=== PATIENT | male | born 1955 | race Caucasian/White ===

== ENCOUNTER 2023-07-03 09:48 | Emergency (ER) | payer MEDICARE, OTHER, SELFPAY ==
[2023-07-03] VITALS (7 sets, daily range): BP systolic 82–125; BP diastolic 57–97
[2023-07-03 10:32] LABS: Glucose - Point of Care > 600 mg/dl (70-99)
--- NOTE | 2023-07-03 10:44 | ED.GENMED ---
History of Present Illness
General
Chief Complaint: Urinary Symptoms
Source: patient
Exam Limitations: none
Time Seen by Provider: 07/03/23 10:11
Nursing documentation reviewed up to this point in time: agreed with
Travel History
Have you had any contact with someone who has COVID-19?: No
Do you have any symptoms of coronavirus? Fever > 100 degrees, chills, cough, shortness of breath, sore throat, loss of taste or smell, muscle aches, or headache?: No
History of Present Illness
History of Present Illness:
68-year-old male here with multiple concerns. He claims that he has not been taking his medications over the past 1-1/2 to 2 weeks including insulin, cholesterol medication. He does have a history of diabetes hypertension hyperlipidemia.
Additionally has a history of recurrent urinary tract infections. Also claims that left-sided groin discomfort denies changes in bowel movements denies nausea or vomiting. Does have urinary frequency and urgency.
Past History
Past History
ED Past Medical History: Asthma, HTN, Hypercholesterolemia, IDDM and Other (Kidney stones, Chronic back pain)
ED Past Surgical History: Other (Back surgery with microdiscectomy, kidney stone surgery x3, in removal of a right lymph node)
Social History
Tobacco: Smoker
Alcohol: None
Drug: None
Personal: Single
Living: alone
Employment: Disabled
Family History
Family History: Other (Noncontributory)
Review of Systems
Review of Systems
Allergies reviewed?: Yes
All Other Systems: ROS reviewed and negative except as documented in HPI and ROS
Phy Exam
Physical Exam
Physical Exam:
GENERAL: Alert , in no apparent distress
EYE: pupils equal and reactive
NECK: Supple, no significant adenopathy.
ENT: o/p clr, mmm.
CARDIAC: Regular rate and rhythm .
LUNGS: Clear breath sounds bilaterally, no acute respiratory distress, no wheezes/rales/rhonchi
ABDOMEN: Very minimal discomfort to the left groin area no testicular discomfort normal phallus soft benign abdomen otherwise no cvat
NEUROLOGICAL: Alert and oriented, no focal neuro deficits
SKIN: Warm and dry, skin intact.
MUSCULOSKELETAL: No edema, well perfused.
PSYCH: Normal and appropriate interaction.
Course
Orders/Labs/Results
Orders:
Orders
07/03/23 10:34
0.9% Sodium Chloride 1000 ml [Nss] 1,000 ml IV BOLUS
07/03/23 10:47
B-Hydroxybutyrate Urgent
Complete Blood Count/With Diff Urgent
Comprehensive Metabolic Panel Urgent
Lactic Acid Urgent
Venous Blood Gas Urgent
%Oxygen/Room Air: 99
07/03/23 10:50
Urinalysis Reflex To Culture Urgent
Date Specimen was Collected: 07/03/23
Time Specimen was Collected: 10:49
Urine Microscopic Reflex Cult Urgent
07/03/23 11:47
Insulin Human Regular [Novolin R] 10 units IV NOW STA
07/03/23 11:49
0.9% Sodium Chloride 1000 ml [Nss] 1,000 ml IV BOLUS
07/03/23 12:35
Bedside Glucose- Treatment ONCE
Vital Signs- Treatment ONCE
Frequency: Once
07/03/23 13:32
Cephalexin Monohydrate [Keflex] 500 mg PO NOW STA
Abnormal Lab Results
07/03/23 07/03/23 07/03/23
10:30 10:47 10:50
Hct 38.5 L %
(39.0-52.0)
MCV 78.9 L fL
(80.0-94.0)
MCHC 37.4 H g/dL
(33.0-37.0)
Absolute Monos (auto) 0.7 H 10^3/uL
(0.1-0.6)
Monocytes % 9.9 H %
(1.7-9.3)
VBG pO2 63 H mmHg
(30-50)
Sodium 125 L mmol/L
(135-145)
Chloride 92 L mmol/L
(98-107)
BUN 22 H mg/dl
(9-20)
Glucose 726 H* mg/dl
(70-99)
Alkaline Phosphatase 291 H U/L
(38-126)
Leukocyte Esterase Rfl Trace A
(Negative)
Urine Bacteria (Reflex) Few A
(Negative)
Urine Glucose 3+ A
(Negative)
B-Hydroxybutyrate 0.37 H mmol/L
(0.02-0.27)
POC Glucose > 600 H* mg/dl
(70-99)
07/03/23
12:42
Hct
MCV
MCHC
Absolute Monos (auto)
Monocytes %
VBG pO2
Sodium
Chloride
BUN
Glucose
Alkaline Phosphatase
Leukocyte Esterase Rfl
Urine Bacteria (Reflex)
Urine Glucose
B-Hydroxybutyrate
POC Glucose 323 H mg/dl
(70-99)
07/03/23 10:47
07/03/23 10:47
Vital Signs
Initial and Last Documented VS:
Initial Vital Signs
Temp Pulse Resp BP Pulse Ox
98.0 F 106 16 121/97 98
07/03/23 09:49 07/03/23 09:49 07/03/23 09:49 07/03/23 09:49 07/03/23 09:49
Last Documented Vital Signs
Temp Pulse Resp BP Pulse Ox
98.0 F 106 16 114/71 100
07/03/23 09:49 07/03/23 09:49 07/03/23 09:49 07/03/23 13:30 07/03/23 13:30
MDM/Problems Addressed
MDM/Problems Addressed:
68-year-old male presenting to the emergency department today with concerns of dysuria and slight left-sided groin discomfort. Also claims he is up and take his medications over the past few weeks and is an insulin-dependent diabetic. Upon arrival
patient was mildly tachycardic but heart rate in the 90s during my assessment on the monitor. Plan for labs for further assessment. Patient's initial fingerstick was read as 'high' otherwise corrected sodium
. Initial labs showing sugar level of 726. He was given fluids as well as dose of insulin. Close to normal range considering significantly elevated hyperglycemia otherwise no anion gap normal bicarb no signs of DKA. Did have bacteria as well as
white blood cells in his urine he claimed to have symptoms potentially consistent with UTI was treated with antibiotics. Patient was rechecked after a few hours in the ER after 2 L of fluid in the low 300s. Patient generally well-appearing in no
distress tolerating by mouth was written for his medication but otherwise will be able to follow-up close with a primary care doctor. Primary care was contacted prior to his discharge to ensure prompt follow-up.
*Critical Care Note
Total Time (30-74mins, 75-104mins- exclusive of procedures): Not Applicable
ED Attending Note
-
Portions of this chart may have been created with voice recognition software.� Occasional wrong word or��sound alike� substitutions may have occurred due to the inherent limitations of voice recognition software.
Discharge Plan
Departure
Patient Disposition: Home (Routine Discharge)
Date of Disposition: 07/03/23
Time of Disposition: 13:27
Patient with high blood pressure during this ER visit?: No
Condition: Good
Covid-19: Not Applicable
Discharge Problem:
Acute hyperglycemia, UTI (urinary tract infection)
Instructions: Urinary Tract Infection, Adult (DC), Diabetes Type 1, Adult (DC)
Prescriptions:
New
Humalog Mix 75-25(U-100)Insuln 100 unit/mL (75-25) suspension
19 unit SC BID Qty: 10 0RF
cephalexin 500 mg capsule
500 mg PO TID 5 Days Qty: 15 0RF
(DME) lancets Misc
See Rx Instructions .Route Qty: 100 0RF
Rx Instructions:
As directed
(DME) blood-glucose meter Kit
See Rx Instructions .Route Qty: 1 0RF
Rx Instructions:
As directed
No Action
diphenhydramine HCl [Benadryl] 25 mg Capsule
75 mg PO BID
insulin lispro protamin-lispro [Humalog Mix 75-25(U-100)Insuln] 100 unit/mL (75-25) Insulin Pen
19 unit SC BID
Patient Comments:
07/03/2023, pt. states that they ran out and have not used this med. for roughly 2-3 weeks.
ibuprofen-acetaminophen [Advil Dual Action] 125-250 mg Tablet
2 tab PO BID
Referrals:
[facility] [Provider Group] - Follow up in 2-3 days
NONE,* [Family Provider] -
Activity Restrictions/Additional Instructions:
You came to the emergency department today with concerns of chronic medical conditions that been left untreated. Here you had a very high sugar when you arrived. You are given fluids and insulin with significant improvement of your sugar level
into the 300s but will need ongoing very close management. Please make sure you monitor your sugar at home and take your insulin as prescribed. Please eat a low carbohydrate diet. He also may have a urinary tract infection. Please take Keflex 3
times daily for the next 5 days. He will need to follow-up closely with the medicine clinic in the next few days for reassessment. Return to the emergency department for any worsening, new or concerning symptoms.
Interventions
Interventions:
*Risk Screen - Suicide Last Done: 07/03/23 10:21
*General Assessment Last Done: 07/03/23 10:21
*Neglect/Abuse Screening Last Done: 07/03/23 10:21
ED- Fall Risk Assessment Last Done: 07/03/23 10:21
*ED COVID-19 Vaccine History Last Done: 07/03/23 09:49
*Nursing Disposition Last Done: 07/03/23 13:45
ED-Male Genitourinary Assessment Last Done: 07/03/23 10:21
Discharge Date and Time
Discharge Date/Time: 07/03/23 13:45
[2023-07-03] MEDS: NSS 1000 IV ×2 (10:47→12:10)
[2023-07-03 10:59] LABS: % Basophils 0.8 % (0-2); % Eosinophils 1.2 % (0-6); % Immature Granulocytes 0.5 % (0-0.5); % Lymphocytes 26.5 % (20.5-51.1); % Monocytes 9.9 % (1.7-9.3); % Neutrophils 61.1 % (42.2-75.2); Absolute Basophils 0.1 10^3/uL (0-0.2); Absolute Eosinophils 0.1 10^3/uL (0-0.7); Absolute Monocytes 0.7 10^3/uL (0.1-0.6); Absolute Neutrophils 4.6 10^3/uL (1.4-6.5); Hematocrit 38.5 % (39.0-52.0); Hemoglobin 14.4 g/dL (13.0-18.0); Mean Corp Hgb Conc. 37.4 g/dL (33.0-37.0); Mean Corpuscular Hgb 29.5 pg (27.0-31.0); Mean Corpuscular Volume 78.9 fL (80.0-94.0); Mean Platelet Volume 9.8 fL (7.4-10.4); Nucleated Red Blood Cells % 0 % (-); Platelet Count 220 10^3/uL (130-400); Red Blood Cell Count 4.88 10^6/uL (4.70-6.10); Red Cell Dist. Width 12.8 % (11.5-14.5); White Blood Cell Count 7.5 10^3/uL (4.8-10.8)
[2023-07-03 11:04] LABS: Venous Blood Gas B.E. 0.5 mmol/L (-4 to +4); Venous Blood Gas HCO3 25.4 mmol/L (22-27); Venous Blood Gas pCO2 41 mmHg (35-48); Venous Blood Gas pO2 63 mmHg (30-50)
[2023-07-03 11:09] LABS: Urine Albumin Negative (Neg - Trace); Urine Bilirubin Negative (Negative); Urine Character Clear (Clear); Urine Color Yellow; Urine Glucose 3+ (Negative); Urine Ketone Negative (Negative); Urine Leukocyte Trace (Negative); Urine Nitrite Negative (Negative); Urine Occult Blood Negative (Negative); Urine Urobilinogen Negative (Neg - 1+)
[2023-07-03 11:11] LABS: Lactic Acid 1.1 mmol/L (0.7-2.0)
[2023-07-03 11:20] LABS: ALT (SGPT) 43 U/L (0-50); AST (SGOT) 39 U/L (17-59); Albumin 4.1 g/dl (3.5-5.0); Alkaline Phosphatase 291 U/L (38-126); B-Hydroxybutyrate 0.37 mmol/L (0.02-0.27); Blood Urea Nitrogen 22 mg/dl (9-20); Calcium 9.5 mg/dl (8.4-10.2); Carbon Dioxide 25 mmol/L (22-30); Chloride 92 mmol/L (98-107); Estimated Creatinine Clearance 84 ml/min; Potassium 4.5 mmol/L (3.5-5.1); Sodium 125 mmol/L (135-145); Total Bilirubin 0.7 mg/dl (0.2-1.3); Total Protein 6.9 g/dl (6.3-8.2); eGFR > 60.00
[2023-07-03 11:20] LABS: Urine Bacteria Few (Negative); Urine Red Blood Cell 0-2 /HPF (0-2)
[2023-07-03 11:45] LABS: Glucose 726 mg/dl (70-99)
[2023-07-03] MEDS: NOVOLIN R 10 UNITS IV (12:07)
[2023-07-03 12:43] LABS: Glucose - Point of Care 323 mg/dl (70-99)
[2023-07-03] MEDS: KEFLEX 500 MG PO (13:38)
== END 2023-07-03 13:45 | disposition home or self-care (01) ==
LOC: EMR 09:48
PROVIDERS: Physician Assistant; EMERGENCY PHYSICIAN Student in an Organized Health Care Education/Training Program
DX: E11.65 Type 2 diabetes mellitus with hyperglycemia (principal); N39.0 Urinary tract infection, site not specified; J45.909 Unspecified asthma, uncomplicated; I10 Essential (primary) hypertension; E78.00 Pure hypercholesterolemia, unspecified; F17.200 Nicotine dependence, unspecified, uncomplicated; G89.29 Other chronic pain; Z87.440 Personal history of urinary (tract) infections; Z87.442 Personal history of urinary calculi; Z79.4 Long term (current) use of insulin
CPT/HCPCS: 99283; 96374; 96361; 80053; 81003; 81015; 82010; 82805; 82962; 83605; 85025

== ENCOUNTER 2023-11-07 13:59 | Emergency (ER) | payer MEDICARE, OTHER, SELFPAY ==
[2023-11-07 14:10] VITALS: BP 118/74
[2023-11-07 14:20] LABS: Glucose - Point of Care 576 mg/dl (70-99)
[2023-11-07 14:31] VITALS: BMI 20.6
[2023-11-07 14:32] VITALS: BP 105/76
[2023-11-07 14:55] LABS: % Basophils 0.8 % (0-2); % Eosinophils 1.4 % (0-6); % Immature Granulocytes 0.6 % (0-0.5); % Lymphocytes 30.2 % (20.5-51.1); % Monocytes 8.4 % (1.7-9.3); % Neutrophils 58.6 % (42.2-75.2); Absolute Basophils 0.1 10^3/uL (0-0.2); Absolute Eosinophils 0.1 10^3/uL (0-0.7); Absolute Lymphocytes 2.1 10^3/uL (1.2-3.4); Absolute Monocytes 0.6 10^3/uL (0.1-0.6); Absolute Neutrophils 4.1 10^3/uL (1.4-6.5); Hematocrit 38.7 % (39.0-52.0); Hemoglobin 13.8 g/dL (13.0-18.0); Mean Corp Hgb Conc. 35.7 g/dL (33.0-37.0); Mean Corpuscular Hgb 28.9 pg (27.0-31.0); Mean Platelet Volume 9.8 fL (7.4-10.4); Nucleated Red Blood Cells % 0 % (-); Platelet Count 190 10^3/uL (130-400); Red Blood Cell Count 4.78 10^6/uL (4.70-6.10); Red Cell Dist. Width 12.4 % (11.5-14.5); White Blood Cell Count 7.1 10^3/uL (4.8-10.8)
[2023-11-07 15:00] VITALS: BP 116/74
[2023-11-07] MEDS: NSS 1000 IV ×2 (15:06→15:31)
[2023-11-07 15:08] LABS: ALT (SGPT) 84 U/L (0-50); AST (SGOT) 68 U/L (17-59); Alkaline Phosphatase 333 U/L (38-126); Blood Urea Nitrogen 14 mg/dl (9-20); Calcium 9.5 mg/dl (8.4-10.2); Carbon Dioxide 25 mmol/L (22-30); Chloride 95 mmol/L (98-107); Estimated Creatinine Clearance 98 ml/min; Glucose 603 mg/dl (70-99); Potassium 4.3 mmol/L (3.5-5.1); Sodium 129 mmol/L (135-145); Total Bilirubin 0.5 mg/dl (0.2-1.3); Total Protein 6.8 g/dl (6.3-8.2); eGFR > 60.00
[2023-11-07 15:25] LABS: Venous Blood Gas B.E. 0.1 mmol/L (-4 to +4); Venous Blood Gas HCO3 24.7 mmol/L (22-27); Venous Blood Gas O2 Sat % 98.4 %; Venous Blood Gas pCO2 39 mmHg (35-48); Venous Blood Gas pH 7.41 (7.32-7.43); Venous Blood Gas pO2 97 mmHg (30-50)
--- NOTE | 2023-11-07 15:31 | ED.GENMED ---
History of Present Illness
General
Chief Complaint: Blood Sugar Problem
Source: patient
Exam Limitations: none
Time Seen by Provider: 11/07/23 14:36
Nursing documentation reviewed up to this point in time: agreed with
Travel History
Have you had any contact with someone who has COVID-19?: No
Do you have any symptoms of coronavirus? Fever > 100 degrees, chills, cough, shortness of breath, sore throat, loss of taste or smell, muscle aches, or headache?: No
History of Present Illness
History of Present Illness:
68 y/o M with h/o IDDM
poor compliance, lost to follow up despite beign given resources
here with hyperglycemia, right lower dental infection adn suspecion of a urine infection with lower abd pain/groin pain which he has had before with UTI and thinks he has another one
he says he is not homeless but he lives in a motel and tries to take care of himself
he has chronic foot pain from neuropathy but no wounds
no fever/chills/tesitcular pain/vomiting, diarrhea
he knew his bg was high so he rode his bike here, he has been without meds for a while
Past History
Past History
ED Past Medical History: Asthma, HTN, Hypercholesterolemia, IDDM and Other (Kidney stones, Chronic back pain)
ED Past Surgical History: Other (Back surgery with microdiscectomy, kidney stone surgery x3, in removal of a right lymph node)
Social History
Tobacco: Smoker
Alcohol: None
Drug: None
Personal: Single
Living: alone
Employment: Disabled
Family History
Family History: Other (Noncontributory)
Review of Systems
Review of Systems
Allergies reviewed?: Yes
All Other Systems: Not applicable
Phy Exam
Physical Exam
Physical Exam:
GENERAL: Alert , in no apparent distress, unkept
EYE: pupils equal and reactive
NECK: Supple
ENT: o/p clr, mmm.
mostly edentureless
right lower impacted molar fractured; tender, no periaplical swelling
CARDIAC: Regular rate and rhythm .
LUNGS: Clear breath sounds bilaterally, no acute respiratory distress, no wheezes/rales/rhonchi
ABDOMEN: Soft, without focal tenderness, no r/g, no cvat, normal bowel sounds
no inguinal tendnress or hernia
NEUROLOGICAL: Alert and oriented, no focal neuro deficits
SKIN: Warm and dry, skin intact. no wounds on feet, normal perfusion toes
MUSCULOSKELETAL: No edema, well perfused. neg katelynn's sign
PSYCH: Normal and appropriate interaction.
Course
Orders/Labs/Results
Orders:
Orders
11/07/23 14:33
B-Hydroxybutyrate Urgent
Complete Blood Count/With Diff Urgent
Comprehensive Metabolic Panel Urgent
11/07/23 14:58
Add On- LAB Urgent
Tests Added?: B-hydroxybutyrate
11/07/23 14:59
Venous Blood Gas Urgent
%Oxygen/Room Air: 21
0.9% Sodium Chloride 1000 ml [Nss] 1,000 ml IV BOLUS
11/07/23 15:26
0.9% Sodium Chloride 1000 ml [Nss] 1,000 ml IV BOLUS
11/07/23 16:36
Urinalysis Reflex To Culture Urgent
Date Specimen was Collected: 11/07/23
Time Specimen was Collected: 16:09
Urine Microscopic Reflex Cult Urgent
Urine Culture Urgent
KYLER Source: U
Specimen Description:
Date Specimen was Collected: 11/07/23
Time Specimen was Collected: 16:09
11/07/23 17:03
Cefdinir [Omnicef] 300 mg PO NOW STA
11/07/23 17:26
Insulin Regular, Human Pen [NovoLIN R Flexpen] 4 units SC NOW STA
Abnormal Lab Results
11/07/23 11/07/23 11/07/23
14:19 14:33 14:59
Hct 38.7 L %
(39.0-52.0)
Immature Gran % 0.6 H %
(0-0.5)
VBG pO2 97 H mmHg
(30-50)
Sodium 129 L mmol/L
(135-145)
Chloride 95 L mmol/L
(98-107)
Creatinine 0.5 L mg/dL
(0.7-1.3)
Glucose 603 H* mg/dl
(70-99)
AST 68 H U/L
(17-59)
ALT 84 H U/L
(0-50)
Alkaline Phosphatase 333 H U/L
(38-126)
Urine Ketones
Urine Nitrite (Reflex)
Leukocyte Esterase Rfl
Urine Bacteria (Reflex)
Urine Glucose
B-Hydroxybutyrate 0.29 H mmol/L
(0.02-0.27)
POC Glucose 576 H* mg/dl
(70-99)
11/07/23 11/07/23
16:36 17:25
Hct
Immature Gran %
VBG pO2
Sodium
Chloride
Creatinine
Glucose
AST
ALT
Alkaline Phosphatase
Urine Ketones Trace A
(Negative)
Urine Nitrite (Reflex) Positive A
(Negative)
Leukocyte Esterase Rfl Trace A
(Negative)
Urine Bacteria (Reflex) Many A
(Negative)
Urine Glucose 3+ A
(Negative)
B-Hydroxybutyrate
POC Glucose 367 H mg/dl
(70-99)
11/07/23 14:33
11/07/23 14:33
Vital Signs
Initial and Last Documented VS:
Initial Vital Signs
Temp Pulse Resp BP Pulse Ox
98.3 F 83 20 118/74 97
11/07/23 14:10 11/07/23 14:10 11/07/23 14:10 11/07/23 14:10 11/07/23 14:10
Last Documented Vital Signs
Temp Pulse Resp BP Pulse Ox
98.3 F 73 17 117/71 99
11/07/23 14:10 11/07/23 16:45 11/07/23 16:45 11/07/23 16:00 11/07/23 16:45
MDM/Problems Addressed
Differential Diagnosis Includes:
hyperglycemia, HHNK ,noncompliance, UTI
MDM/Problems Addressed:
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
has had previous ed visits for hypergylecmia and reqeusting refills of his meds
he also feels like he has a UTI and has a right lower tooth infection with decay and is mostly edentureless
no facial swellign
no periapical abscess
no abdominla ptednerness
previous ed visits reviewd
pt usually responds well to IVF
his initial labs show BG 600, hyponatremia pseudo, corrected for glc is normal
his AG is 9
his ph is normal
and bhb is minimally elevated
ua positive
after 2 L ivf, bg 360
treated with insulin prior to discharge
message to family p[[facility]
d/c home
*Critical Care Note
Total Time (30-74mins, 75-104mins- exclusive of procedures): Not Applicable
ED Attending Note
-
Portions of this chart may have been created with voice recognition software.� Occasional wrong word or��sound alike� substitutions may have occurred due to the inherent limitations of voice recognition software.
Discharge Plan
Departure
Patient Disposition: Home (Routine Discharge)
Date of Disposition: 11/07/23
Time of Disposition: 17:31
Patient with high blood pressure during this ER visit?: No
Condition: Fair
Covid-19: Not Applicable
Discharge Problem:
UTI (urinary tract infection), Type 2 diabetes mellitus with hyperglycemia
Instructions: Urinary Tract Infection, Adult ED, High Blood Sugar, Adult ED
Prescriptions:
New
cefdinir 300 mg capsule
300 mg PO BID Qty: 14 0RF
Humalog Mix 75-25(U-100)Insuln 100 unit/mL (75-25) suspension
19 unit SC BID Qty: 10 1RF
No Action
diphenhydramine HCl [Benadryl] 25 mg Capsule
75 mg PO HS
insulin lispro protamin-lispro [Humalog Mix 75-25(U-100)Insuln] 100 unit/mL (75-25) Insulin Pen
22 unit SC BID
Referrals:
NONE,* [Family Provider] -
Activity Restrictions/Additional Instructions:
I refilled your insulin. You also have an infection in your urine. Take cefdinir twice a day for 7 days. You need to see a dentist for her tooth. Probably needs to be pulled.
You need to try to make an appointment with the family medicine clinic. I sent a message to them to try hopefully get in touch with you. Return for any concerns.
Interventions
Interventions:
*Risk Screen - Suicide Last Done: 11/07/23 14:10
*General Assessment Last Done: 11/07/23 14:10
*Neglect/Abuse Screening Last Done: 11/07/23 14:10
ED- Fall Risk Assessment Last Done: 11/07/23 14:31
*ED COVID-19 Vaccine History Last Done: 11/07/23 14:31
ED- Neurological Assessment Last Done: 11/07/23 14:31
Discharge Date and Time
Print Language: PANAMANIAN
[2023-11-07 15:34] LABS: B-Hydroxybutyrate 0.29 mmol/L (0.02-0.27)
[2023-11-07 16:00] VITALS: BP 117/71
[2023-11-07 16:53] LABS: Urine Albumin Negative (Neg - Trace); Urine Bilirubin Negative (Negative); Urine Character Clear (Clear); Urine Color Yellow; Urine Glucose 3+ (Negative); Urine Ketone Trace (Negative); Urine Leukocyte Trace (Negative); Urine Nitrite Positive (Negative); Urine Occult Blood Negative (Negative); Urine Urobilinogen Negative (Neg - 1+)
[2023-11-07 17:06] LABS: Urine Red Blood Cell 0-2 /HPF (0-2)
[2023-11-07 17:07] LABS: Urine Bacteria Many (Negative)
[2023-11-07 17:27] LABS: Glucose - Point of Care 367 mg/dl (70-99)
[2023-11-07] MEDS: OMNICEF 300 MG PO (17:45)
[2023-11-07] MEDS: NOVOLIN R 0.0400000000000000008 UNITS SC (17:52)
[2023-11-07 18:01] VITALS: BP 126/69
[2023-11-07 18:16] VITALS: BP 126/69
--- NOTE | 2023-11-09 15:34 | ED.PDOC.TRB ---
ED Provider Triage
-
Patient seen by provider in Triage?: Seen in Triage
68-year-old male past medical history of insulin-dependent diabetes, admits to noncompliance with his medication for many months, presents back to the emergency department after being seen here 2 days ago stating that we prescribed him the wrong
type of the. Patient states that he had been without his insulin for at least 5 months prior to this notes that he does not his blood sugars regularly or was compliant with his medication previously. He has no other concerns and was hoping to get
a different type of insulin. On record review it appears patient had a blood sugar of greater than 600 on his last visit 2 days ago. Was treated with insulin here as well as 2 L of fluids and had a downtrending glucose. Bkaux-[id number] glucose
shows glucose is high. Labs ordered as I suspect patient's glucose will again be greater than 500. Diabetic consult requested. Patient to be brought back into the ER.
== END 2023-11-07 18:16 | disposition home or self-care (01) ==
LOC: EMR 13:59
PROVIDERS: Physician Assistant; Student in an Organized Health Care Education/Training Program; EMERGENCY PHYSICIAN Emergency Medicine
DX: N39.0 Urinary tract infection, site not specified (principal); E11.65 Type 2 diabetes mellitus with hyperglycemia; K04.7 Periapical abscess without sinus; E87.1 Hypo-osmolality and hyponatremia; E78.00 Pure hypercholesterolemia, unspecified; J45.909 Unspecified asthma, uncomplicated; I10 Essential (primary) hypertension; G89.29 Other chronic pain; F17.200 Nicotine dependence, unspecified, uncomplicated; Z87.440 Personal history of urinary (tract) infections; Z87.442 Personal history of urinary calculi
CPT/HCPCS: 99283; 96372; 96360; 96361; 80053; 81003; 81015; 82010; 82805; 82962; 85025; 87086; 87088; 87186

== ENCOUNTER 2023-11-09 15:20 | Emergency (ER) | payer MEDICARE, OTHER, SELFPAY ==
[2023-11-09 15:34] VITALS: BP 114/81
[2023-11-09 15:34] LABS: Glucose - Point of Care 523 mg/dl (70-99)
--- NOTE | 2023-11-09 15:49 | ED.GENMED ---
History of Present Illness
General
Chief Complaint: Blood Sugar Problem
Travel History
Have you had any contact with someone who has COVID-19?: No
Do you have any symptoms of coronavirus? Fever > 100 degrees, chills, cough, shortness of breath, sore throat, loss of taste or smell, muscle aches, or headache?: No
Past History
Past History
ED Past Medical History: Asthma, HTN, Hypercholesterolemia, IDDM and Other (Kidney stones, Chronic back pain)
ED Past Surgical History: Other (Back surgery with microdiscectomy, kidney stone surgery x3, in removal of a right lymph node)
Social History
Tobacco: Smoker
Alcohol: None
Drug: None
Personal: Single
Living: alone
Employment: Disabled
Family History
Family History: Other (Noncontributory)
Course
Orders/Labs/Results
Orders:
Orders
11/09/23 15:43
B-Hydroxybutyrate Urgent
CMP [Comprehensive Metabolic Panel] Urgent
Complete Blood Count/With Diff Urgent
Hemoglobin A1c [Glycohemoglobin (HgbA1c)] Urgent
Urinalysis Reflex To Culture Urgent
Date Specimen was Collected: 11/09/23
Time Specimen was Collected: 15:43
11/09/23 15:44
Venous Blood Gas Urgent
%Oxygen/Room Air: RA
0.9% Sodium Chloride 1000 ml [Nss] 1,000 ml IV BOLUS
Abnormal Lab Results
11/09/23
15:32
POC Glucose 523 H* mg/dl
(70-99)
Vital Signs
Initial and Last Documented VS:
Initial Vital Signs
Temp Pulse Resp BP Pulse Ox
98.7 F 101 18 114/81 97
11/09/23 15:34 11/09/23 15:34 11/09/23 15:34 11/09/23 15:34 11/09/23 15:34
Last Documented Vital Signs
Temp Pulse Resp BP Pulse Ox
98.7 F 101 18 114/81 97
11/09/23 15:34 11/09/23 15:34 11/09/23 15:34 11/09/23 15:34 11/09/23 15:34
ED Attending Note
-
Portions of this chart may have been created with voice recognition software.� Occasional wrong word or��sound alike� substitutions may have occurred due to the inherent limitations of voice recognition software.
Discharge Plan
Departure
Prescriptions:
No Action
diphenhydramine HCl [Benadryl] 25 mg Capsule
75 mg PO HS
insulin lispro protamin-lispro [Humalog Mix 75-25(U-100)Insuln] 100 unit/mL (75-25) Insulin Pen
22 unit SC BID
cefdinir 300 mg capsule
300 mg PO BID Qty: 14 0RF
Humalog Mix 75-25(U-100)Insuln 100 unit/mL (75-25) suspension
19 unit SC BID Qty: 10 1RF
Interventions
Interventions:
*Risk Screen - Suicide Last Done: 11/09/23 15:34
*Neglect/Abuse Screening Last Done: 11/09/23 15:34
*ED COVID-19 Vaccine History Last Done: 11/09/23 15:34
Discharge Date and Time
Print Language: SLOVAK
--- NOTE | 2023-11-09 15:57 | PN.DE ---
Diabetes Education
- -
11/09/23: Diabetes Education Consult
This is a 68 year old male well known to me from his last hospital stay. Pt presented to the ED with concerns of poorly controlled blood sugars and acute on chronic vision issues. His blood sugar on admission was in the 500s. He was given a liter of
fluid as well as 10 units of insulin.
ED staff consulted diabetes team for insulin instructions and discussion about poor compliance with diabetes management at home.
Of note, pt is already on insulin at home. He takes NPH 20 units BID and states that he is comfortable with self administration of insulin.
Pt was counseled about glucose control and emphasized need to continue taking his insulin as prescribed. Pt states that he was here in the ED yesterday and was given the wrong prescription and that it's the reason why his blood sugars are high.
Discussed with ED PA and plan is to involve case management to assist with pt's OP f/u appointments with his PCP.
[2023-11-09] MEDS: NSS 1000 IV (16:05)
[2023-11-09 16:07] LABS: Venous Blood Gas B.E. -0.9 mmol/L (-4 to +4); Venous Blood Gas HCO3 24.9 mmol/L (22-27); Venous Blood Gas O2 Sat % 95.9 %; Venous Blood Gas pCO2 44 mmHg (35-48); Venous Blood Gas pH 7.36 (7.32-7.43); Venous Blood Gas pO2 80 mmHg (30-50)
[2023-11-09 16:23] LABS: % Eosinophils 1.4 % (0-6); % Immature Granulocytes 0.6 % (0-0.5); % Lymphocytes 28.5 % (20.5-51.1); % Neutrophils 60.5 % (42.2-75.2); Absolute Basophils 0.1 10^3/uL (0-0.2); Absolute Eosinophils 0.1 10^3/uL (0-0.7); Absolute Immature Granulocytes 0.1 10^3/uL (0-0.05); Absolute Lymphocytes 2.5 10^3/uL (1.2-3.4); Absolute Monocytes 0.7 10^3/uL (0.1-0.6); Absolute Neutrophils 5.3 10^3/uL (1.4-6.5); Hematocrit 41.4 % (39.0-52.0); Hemoglobin 15.2 g/dL (13.0-18.0); Mean Corp Hgb Conc. 36.7 g/dL (33.0-37.0); Mean Corpuscular Hgb 29.3 pg (27.0-31.0); Mean Corpuscular Volume 79.8 fL (80.0-94.0); Mean Platelet Volume 9.8 fL (7.4-10.4); Nucleated Red Blood Cells % 0 % (-); Platelet Count 202 10^3/uL (130-400); Red Blood Cell Count 5.19 10^6/uL (4.70-6.10); Red Cell Dist. Width 12.8 % (11.5-14.5); White Blood Cell Count 8.7 10^3/uL (4.8-10.8)
[2023-11-09 16:30] LABS: ALT (SGPT) 90 U/L (0-50); AST (SGOT) 88 U/L (17-59); Albumin 4.5 g/dl (3.5-5.0); Alkaline Phosphatase 286 U/L (38-126); Blood Urea Nitrogen 14 mg/dl (9-20); Calcium 10.1 mg/dl (8.4-10.2); Carbon Dioxide 24 mmol/L (22-30); Chloride 95 mmol/L (98-107); Glucose 555 mg/dl (70-99); Potassium 5.4 mmol/L (3.5-5.1); Sodium 128 mmol/L (135-145); Total Bilirubin 0.9 mg/dl (0.2-1.3); Total Protein 7.6 g/dl (6.3-8.2); eGFR > 60.00
[2023-11-09 16:30] LABS: Urine Albumin Negative (Neg - Trace); Urine Bilirubin Negative (Negative); Urine Character Clear (Clear); Urine Color Yellow; Urine Glucose 3+ (Negative); Urine Ketone 1+ (Negative); Urine Leukocyte Negative (Negative); Urine Nitrite Negative (Negative); Urine Occult Blood Negative (Negative); Urine Urobilinogen Negative (Neg - 1+)
--- NOTE | 2023-11-09 16:59 | ED.GENMED ---
History of Present Illness
General
Chief Complaint: Blood Sugar Problem
Source: patient
Exam Limitations: none
Time Seen by Provider: 11/09/23 16:23
Nursing documentation reviewed up to this point in time: agreed with
Travel History
Have you had any contact with someone who has COVID-19?: No
Do you have any symptoms of coronavirus? Fever > 100 degrees, chills, cough, shortness of breath, sore throat, loss of taste or smell, muscle aches, or headache?: No
History of Present Illness
History of Present Illness:
68-year-old male past medical history of diabetes but very poor compliance was here few days ago was written for insulin but was told that he can only receive the vials at the time but one of the flex pen so did not use it. He is coming back in to
receive the flex pens here. Denies significant symptoms other than frequent urination claims he had some trouble with his vision for many months as well. Does not have a primary care doctor.
Past History
Past History
ED Past Medical History: Asthma, HTN, Hypercholesterolemia, IDDM and Other (Kidney stones, Chronic back pain)
ED Past Surgical History: Other (Back surgery with microdiscectomy, kidney stone surgery x3, in removal of a right lymph node)
Social History
Tobacco: Smoker
Alcohol: None
Drug: None
Personal: Single
Living: alone
Employment: Disabled
Family History
Family History: Other (Noncontributory)
Review of Systems
Review of Systems
Allergies reviewed?: Yes
All Other Systems: ROS reviewed and negative except as documented in HPI and ROS
Phy Exam
Physical Exam
Physical Exam:
GENERAL: Alert , in no apparent distress
EYE: pupils equal and reactive
NECK: Supple, no significant adenopathy.
ENT: o/p clr, mmm.
CARDIAC: Regular rate and rhythm .
LUNGS: Clear breath sounds bilaterally, no acute respiratory distress, no wheezes/rales/rhonchi
ABDOMEN: Soft, without focal tenderness, no r/g, no cvat
NEUROLOGICAL: Alert and oriented, no focal neuro deficits
SKIN: Warm and dry, skin intact.
MUSCULOSKELETAL: No edema, well perfused.
PSYCH: Normal and appropriate interaction.
Course
Orders/Labs/Results
Orders:
Orders
11/09/23 15:44
0.9% Sodium Chloride 1000 ml [Nss] 1,000 ml IV BOLUS
11/09/23 15:50
Case Management Consult ONCE
Case Management Consult: VN/Home Care
11/09/23 15:55
B-Hydroxybutyrate Urgent
CMP [Comprehensive Metabolic Panel] Urgent
Complete Blood Count/With Diff Urgent
Hemoglobin A1c [Glycohemoglobin (HgbA1c)] Urgent
Venous Blood Gas Urgent
%Oxygen/Room Air: RA
11/09/23 15:59
Urinalysis Reflex To Culture Urgent
Date Specimen was Collected: 11/09/23
Time Specimen was Collected: 15:43
11/09/23 16:44
Insulin Human Regular [Novolin R] 10 units SC NOW STA
11/09/23 17:47
BMP [Basic Metabolic Panel] Urgent
Abnormal Lab Results
11/09/23 11/09/23 11/09/23
15:32 15:55 15:59
MCV 79.8 L fL
(80.0-94.0)
Abs Immat Gran (auto) 0.1 H 10^3/uL
(0-0.05)
Absolute Monos (auto) 0.7 H 10^3/uL
(0.1-0.6)
Immature Gran % 0.6 H %
(0-0.5)
VBG pO2 80 H mmHg
(30-50)
Sodium 128 L mmol/L
(135-145)
Potassium 5.4 H D mmol/L
(3.5-5.1)
Chloride 95 L mmol/L
(98-107)
Carbon Dioxide
Creatinine 0.5 L mg/dL
(0.7-1.3)
Glucose 555 H* mg/dl
(70-99)
AST 88 H U/L
(17-59)
ALT 90 H U/L
(0-50)
Alkaline Phosphatase 286 H U/L
(38-126)
Urine Ketones 1+ A
(Negative)
Urine Glucose 3+ A
(Negative)
B-Hydroxybutyrate 0.36 H mmol/L
(0.02-0.27)
POC Glucose 523 H* mg/dl
(70-99)
11/09/23 11/09/23
17:35 17:47
MCV
Abs Immat Gran (auto)
Absolute Monos (auto)
Immature Gran %
VBG pO2
Sodium 131 L mmol/L
(135-145)
Potassium
Chloride
Carbon Dioxide 20 L mmol/L
(22-30)
Creatinine 0.4 L mg/dL
(0.7-1.3)
Glucose 433 H mg/dl
(70-99)
AST
ALT
Alkaline Phosphatase
Urine Ketones
Urine Glucose
B-Hydroxybutyrate
POC Glucose 403 H mg/dl
(70-99)
11/09/23 15:55
11/09/23 17:47
Vital Signs
Initial and Last Documented VS:
Initial Vital Signs
Temp Pulse Resp BP Pulse Ox
98.7 F 101 18 114/81 97
11/09/23 15:34 11/09/23 15:34 11/09/23 15:34 11/09/23 15:34 11/09/23 15:34
Last Documented Vital Signs
Temp Pulse Resp BP Pulse Ox
98.7 F 101 18 114/81 97
11/09/23 15:34 11/09/23 15:34 11/09/23 15:34 11/09/23 15:34 11/09/23 15:34
MDM/Problems Addressed
MDM/Problems Addressed:
68-year-old male presenting to the emergency department today with concerns of poorly controlled diabetes. Denies specific acute concerns at this time. Does have some chronic concerns including vision blurring over many years. Sugar here
initially in the 500s. He was given a liter of fluid as well as 10 units of insulin. He spoke with case management that will help set up a primary care doctor and give him a phone to use which should help with his compliance moving forward. Sugar
level significantly improving prior to discharge into the 300s stable for discharge return precautions given.
*Critical Care Note
Total Time (30-74mins, 75-104mins- exclusive of procedures): Not Applicable
ED Attending Note
-
Portions of this chart may have been created with voice recognition software.� Occasional wrong word or��sound alike� substitutions may have occurred due to the inherent limitations of voice recognition software.
Discharge Plan
Departure
Patient Disposition: Home (Routine Discharge)
Date of Disposition: 11/09/23
Time of Disposition: 18:33
Patient with high blood pressure during this ER visit?: No
Condition: Good
Covid-19: Not Applicable
Discharge Problem:
Hyperglycemia
Instructions: Diabetes Type 1, Adult (DC)
Prescriptions:
New
Novolin 70-30 FlexPen U-100 100 unit/mL (70-30) insulin pen
20 unit SC BID Qty: 15 0RF
No Action
diphenhydramine HCl [Benadryl] 25 mg Capsule
75 mg PO HS
insulin lispro protamin-lispro [Humalog Mix 75-25(U-100)Insuln] 100 unit/mL (75-25) Insulin Pen
22 unit SC BID
cefdinir 300 mg capsule
300 mg PO BID Qty: 14 0RF
Humalog Mix 75-25(U-100)Insuln 100 unit/mL (75-25) suspension
19 unit SC BID Qty: 10 1RF
Referrals:
UNKNOWN - PT DOES,NOT KNOW [Family Provider] -
Activity Restrictions/Additional Instructions:
You came to the emergency department today with concerns of elevated sugar level. Please use insulin and follow-up closely with a primary care doctor. Return to the emergency department for any worsening, new or concerning symptoms.
Interventions
Interventions:
*Risk Screen - Suicide Last Done: 11/09/23 15:34
*Neglect/Abuse Screening Last Done: 11/09/23 15:34
*ED COVID-19 Vaccine History Last Done: 11/09/23 15:34
ED- Neurological Assessment Last Done: 11/09/23 16:07
Discharge Date and Time
Print Language: UKRAINIAN
[2023-11-09] MEDS: NOVOLIN R 10 UNITS SC (17:00)
--- NOTE | 2023-11-09 17:13 | CM ---
CM met with patient. Patient complaining that he did not receive the correct insulin. He stated that he uses pens and he got a script for vials. CM attempted to discuss a PCP. Patient continued to complain that the doctor's stopped his pain
medications and now he is unable to function. He is agree to taking a list of PCP's. Patient stated that he is currently living at the [facility] and uses his bike for transportation. Patient stated that he need money to buy minutes for his
phone. CM will provide $20 [employer] [place] for phone minutes.
Patient is agreeable to [facility] on aging referral. CM sent via email to [facility].
CM updated ED PA and bedside RN.
[2023-11-09 17:21] LABS: B-Hydroxybutyrate 0.36 mmol/L (0.02-0.27)
[2023-11-09 17:39] LABS: Glucose - Point of Care 403 mg/dl (70-99)
[2023-11-09 18:21] LABS: Blood Urea Nitrogen 15 mg/dl (9-20); Calcium 9.4 mg/dl (8.4-10.2); Carbon Dioxide 20 mmol/L (22-30); Chloride 102 mmol/L (98-107); Glucose 433 mg/dl (70-99); Potassium 3.8 mmol/L (3.5-5.1); Sodium 131 mmol/L (135-145); eGFR > 60.00
[2023-11-09 18:32] LABS: Glucose - Point of Care 318 mg/dl (70-99)
[2023-11-09 19:06] VITALS: BP 115/80
[2023-11-10 09:47] LABS: Glycohemoglobin (HgbA1c) 17.1 % (4.0-5.6)
== END 2023-11-09 19:09 | disposition home or self-care (01) ==
LOC: EMR 15:20
PROVIDERS: Physician Assistant; Physician Assistant Medical; EMERGENCY PHYSICIAN Emergency Medicine
DX: E11.65 Type 2 diabetes mellitus with hyperglycemia (principal); R35.0 Frequency of micturition; E78.00 Pure hypercholesterolemia, unspecified; F17.200 Nicotine dependence, unspecified, uncomplicated; G89.29 Other chronic pain; I10 Essential (primary) hypertension; J45.909 Unspecified asthma, uncomplicated; Z79.4 Long term (current) use of insulin; Z87.442 Personal history of urinary calculi
CPT/HCPCS: 99283; 96372; 96360; 80048; 80053; 81003; 82010; 82805; 82962; 83036; 85025

== ENCOUNTER 2023-12-22 12:51 | Emergency (ER) | payer MEDICARE, OTHER, SELFPAY ==
[2023-12-22 12:52] VITALS: BP 123/87
[2023-12-22 12:55] LABS: Glucose - Point of Care 359 mg/dl (70-99)
--- NOTE | 2023-12-22 13:42 | CM ---
Addendum entered by Gladys Duong RN 12/22/23 14:20:
CM met with patient. Patient is complaining that he is unable to follow up with a PCP because no doctor will prescribe him pain medications and he feels he needs them to 'get through the day'. Of note, patient road his bike to the emergency room
from his hotel room at the [facility]. Patient is able to fruit picker his medications from the local [place].
Patient provided patient with written information for [facility] on aging. Patient stated that he is too difficult to reach via phone. CM did confirm that patient's phone is charged and has minutes available.
Due to patient's inability to follow up on medical care and multiple presentations to the emergency room, CM will call [facility] due to patient's self neglect.
Original Note:
CM reviewed medical records. Patient is well known to CM. CM left message for [facility] through [facility] to see if they can assist.
BRITTNI Jenkins
[facility] Nurse
[phone]
[2023-12-22 14:00] VITALS: BP 97/78
--- NOTE | 2023-12-22 14:39 | CM ---
Addendum entered by Rohini Yoo 12/22/23 16:32:
Alice, nurse from [facility], returned 's phone call. She informed CM that she will be more than glad to help/provide services to patient. CM provided patient's demographics to Alice.
Original Note:
CM called [facility] to report that patient has been utilizing the ER as his PCP. He has difficulty with following up with services that are started or given/suggested to him in the ED. He informed CM that he is 'hard to get ahold of' because 'I go to bed
early. I go to bed around 8PM and don't get up until 12PM some days. It's very hard to get ahold of me. Even my family can't get in touch with me. They'll call several times a day and I'm in and out sleep. I sleep because no one will give me pain
meds. I'm in alot of pain and just sleep.'
[facility] collected required information and report was completed.
CM also called Alice Rizzo's ([facility] nurse) mobile number. No answer. Also called [employer] equalizer operator, who stated she did not have any numbers for Alice or any other [facility] employees.
[2023-12-22 14:41] LABS: % Basophils 1.1 % (0-2); % Eosinophils 2.1 % (0-6); % Immature Granulocytes 1.4 % (0-0.5); % Lymphocytes 30.8 % (20.5-51.1); % Monocytes 8.4 % (1.7-9.3); % Neutrophils 56.2 % (42.2-75.2); Absolute Basophils 0.1 10^3/uL (0-0.2); Absolute Eosinophils 0.2 10^3/uL (0-0.7); Absolute Immature Granulocytes 0.1 10^3/uL (0-0.05); Absolute Lymphocytes 2.5 10^3/uL (1.2-3.4); Absolute Monocytes 0.7 10^3/uL (0.1-0.6); Absolute Neutrophils 4.6 10^3/uL (1.4-6.5); Hematocrit 44.3 % (39.0-52.0); Hemoglobin 15.8 g/dL (13.0-18.0); Mean Corp Hgb Conc. 35.7 g/dL (33.0-37.0); Mean Corpuscular Hgb 30.3 pg (27.0-31.0); Mean Corpuscular Volume 84.9 fL (80.0-94.0); Mean Platelet Volume 9.7 fL (7.4-10.4); Nucleated Red Blood Cells % 0 % (-); Platelet Count 209 10^3/uL (130-400); Red Blood Cell Count 5.22 10^6/uL (4.70-6.10); White Blood Cell Count 8.1 10^3/uL (4.8-10.8)
[2023-12-22] MEDS: NSS 1000 IV (14:43)
[2023-12-22 15:13] LABS: Blood Urea Nitrogen 16 mg/dl (9-20); Calcium 9.6 mg/dl (8.4-10.2); Carbon Dioxide 26 mmol/L (22-30); Chloride 99 mmol/L (98-107); Glucose 341 mg/dl (70-99); Potassium 4.5 mmol/L (3.5-5.1); Sodium 134 mmol/L (135-145); eGFR > 60.00
--- NOTE | 2023-12-22 15:15 | ED.GENMED ---
History of Present Illness
General
Chief Complaint: Prescription Refill
Source: patient
Exam Limitations: none
Time Seen by Provider: 12/22/23 13:43
Nursing documentation reviewed up to this point in time: agreed with
History of Present Illness
History of Present Illness:
68-year-old male with past medical history of hypertension hyperlipidemia, eye DDM, alcohol abuse and substance abuse presenting to the emergency department today with concerns of lack of insulin at home. He claims had some ongoing achiness to his
legs this been going on chronically also complains that he has some blurred vision that has been going on for years. Has not followed up with an eye doctor or foot doctor. Was here for similar a month ago has not been able to follow-up claims that
he has been too busy.
Past History
Past History
ED Past Medical History: Asthma, HTN, Hypercholesterolemia, IDDM and Other (Kidney stones, Chronic back pain)
ED Past Surgical History: Other (Back surgery with microdiscectomy, kidney stone surgery x3, in removal of a right lymph node)
Social History
Tobacco: Smoker
Alcohol: None
Drug: None
Personal: Single
Living: alone
Employment: Disabled
Family History
Family History: Other (Noncontributory)
Review of Systems
Review of Systems
Allergies reviewed?: Yes
All Other Systems: ROS reviewed and negative except as documented in HPI and ROS
Phy Exam
Physical Exam
Physical Exam:
GENERAL: Alert , in no apparent distress
EYE: pupils equal and reactive
NECK: Supple, no significant adenopathy.
ENT: o/p clr, mmm.
CARDIAC: Regular rate and rhythm .
LUNGS: Clear breath sounds bilaterally, no acute respiratory distress, no wheezes/rales/rhonchi
ABDOMEN: Soft, without focal tenderness, no r/g, no cvat
NEUROLOGICAL: Alert and oriented, no focal neuro deficits
SKIN: Warm and dry, skin intact.
MUSCULOSKELETAL: No edema, well perfused.
PSYCH: Normal and appropriate interaction.
Course
Orders/Labs/Results
Orders:
Orders
12/22/23 13:44
0.9% Sodium Chloride 1000 ml [Nss] 1,000 ml IV BOLUS
12/22/23 14:24
BMP [Basic Metabolic Panel] Urgent
CBC/With Diff [Complete Blood Count/With Diff] Urgent
UA Reflex to Culture [Urinalysis Reflex To Culture] Urgent
Date Specimen was Collected: 12/22/23
Time Specimen was Collected: 14:23
12/22/23 15:14
Insulin Aspart [NOVOLOG vial] 10 units SC NOW STA
Abnormal Lab Results
12/22/23 12/22/23
12:54 14:24
Abs Immat Gran (auto) 0.1 H 10^3/uL
(0-0.05)
Absolute Monos (auto) 0.7 H 10^3/uL
(0.1-0.6)
Immature Gran % 1.4 H %
(0-0.5)
Sodium 134 L mmol/L
(135-145)
Creatinine 0.5 L mg/dL
(0.7-1.3)
Glucose 341 H mg/dl
(70-99)
Urine Glucose 3+ A
(Negative)
POC Glucose 359 H mg/dl
(70-99)
12/22/23 14:24
12/22/23 14:24
Vital Signs
Initial and Last Documented VS:
Initial Vital Signs
Temp Pulse Resp BP Pulse Ox
97.8 F 98 18 123/87 97
12/22/23 12:52 12/22/23 12:52 12/22/23 12:52 12/22/23 12:52 12/22/23 12:52
Last Documented Vital Signs
Temp Pulse Resp BP Pulse Ox
97.8 F 84 20 104/83 100
12/22/23 12:52 12/22/23 16:52 12/22/23 16:52 12/22/23 16:52 12/22/23 16:52
MDM/Problems Addressed
MDM/Problems Addressed:
68-year-old male presenting to the emergency department today for an insulin prescription. Sugar here in the 300s no evidence of DKA no anion gap normal bicarb. He was given fluids as well as a dose of insulin here prior to discharge. Otherwise
advised for close outpatient follow-up social work therapist was consulted to help facilitate outpatient follow-up.
*Critical Care Note
Total Time (30-74mins, 75-104mins- exclusive of procedures): Not Applicable
ED Attending Note
-
Portions of this chart may have been created with voice recognition software.� Occasional wrong word or��sound alike� substitutions may have occurred due to the inherent limitations of voice recognition software.
Discharge Plan
Departure
Patient Disposition: Home (Routine Discharge)
Date of Disposition: 12/22/23
Time of Disposition: 16:44
Patient with high blood pressure during this ER visit?: No
Condition: Good
Covid-19: Not Applicable
Discharge Problem:
Diabetes, Neuropathy
Instructions: Diabetic retinopathy, Diabetes and diet
Prescriptions:
New
Humulin 70/30 U-100 KwikPen 100 unit/mL (70-30) insulin pen
20 unit SC BID Qty: 15 0RF
No Action
diphenhydramine HCl [Benadryl] 25 mg Capsule
75 mg PO HS
insulin lispro protamin-lispro [Humalog Mix 75-25(U-100)Insuln] 100 unit/mL (75-25) Insulin Pen
22 unit SC BID
cefdinir 300 mg capsule
300 mg PO BID Qty: 14 0RF
Humalog Mix 75-25(U-100)Insuln 100 unit/mL (75-25) suspension
19 unit SC BID Qty: 10 1RF
Novolin 70-30 FlexPen U-100 100 unit/mL (70-30) insulin pen
20 unit SC BID Qty: 15 0RF
Referrals:
NONE,* [Family Provider] -
Activity Restrictions/Additional Instructions:
You came to the emergency department today with concerns of lack of insulin. Please follow closely as an outpatient return to the emergency department for any worsening, new or concerning symptoms.
Interventions
Interventions:
*Risk Screen - Suicide Last Done: 12/22/23 12:52
*General Assessment Last Done: 12/22/23 12:52
*Neglect/Abuse Screening Last Done: 12/22/23 12:52
ED- Fall Risk Assessment Last Done: 12/22/23 14:30
*ED COVID-19 Vaccine History Last Done: 12/22/23 12:52
*Nursing Disposition Last Done: 12/22/23 16:54
Discharge Date and Time
Discharge Date/Time: 12/22/23 17:13
Print Language: DANISH
[2023-12-22 15:24] LABS: Urine Albumin Negative (Neg - Trace); Urine Bilirubin Negative (Negative); Urine Character Clear (Clear); Urine Color Yellow; Urine Glucose 3+ (Negative); Urine Ketone Negative (Negative); Urine Leukocyte Negative (Negative); Urine Nitrite Negative (Negative); Urine Occult Blood Negative (Negative); Urine Urobilinogen Negative (Neg - 1+); Urine pH 6.5 (5.0-9.0)
[2023-12-22] MEDS: NOVOLOG vial 10 UNITS SC (15:24)
[2023-12-22 16:52] VITALS: BP 104/83
== END 2023-12-22 17:13 | disposition home or self-care (01) ==
LOC: EMR 12:51
PROVIDERS: Physician Assistant; EMERGENCY PHYSICIAN Emergency Medicine
DX: E11.40 Type 2 diabetes mellitus with diabetic neuropathy, unspecified (principal); I10 Essential (primary) hypertension; E78.00 Pure hypercholesterolemia, unspecified; F17.200 Nicotine dependence, unspecified, uncomplicated; Z76.0 Encounter for issue of repeat prescription
CPT/HCPCS: 99284; 96360; 96372; 80048; 81003; 82962; 85025

== ENCOUNTER 2024-01-18 21:39 | Inpatient (IN) | payer MEDICARE, OTHER, SELFPAY ==
[2024-01-18 17:52] VITALS: BP 118/94
[2024-01-18 18:20] VITALS: BP 95/81
[2024-01-18 18:49] VITALS: BMI 24.0
[2024-01-18 18:57] LABS: % Basophils 0.4 % (0-2); % Eosinophils 1.9 % (0-6); % Immature Granulocytes 0.4 % (0-0.5); % Lymphocytes 14.9 % (20.5-51.1); % Monocytes 10.8 % (1.7-9.3); % Neutrophils 71.6 % (42.2-75.2); Absolute Eosinophils 0.2 10^3/uL (0-0.7); Absolute Lymphocytes 1.4 10^3/uL (1.2-3.4); Absolute Neutrophils 6.6 10^3/uL (1.4-6.5); Hematocrit 40.6 % (39.0-52.0); Hemoglobin 14.5 g/dL (13.0-18.0); Mean Corp Hgb Conc. 35.7 g/dL (33.0-37.0); Mean Corpuscular Hgb 29.7 pg (27.0-31.0); Mean Platelet Volume 9.2 fL (7.4-10.4); Nucleated Red Blood Cells % 0 % (-); Platelet Count 234 10^3/uL (130-400); Red Blood Cell Count 4.89 10^6/uL (4.70-6.10); Red Cell Dist. Width 12.9 % (11.5-14.5); White Blood Cell Count 9.3 10^3/uL (4.8-10.8)
--- NOTE | 2024-01-18 19:09 | ED.GENMED ---
History of Present Illness
<Marce Vargas PA-C - Last Filed: 01/18/24 23:55>
General
Chief Complaint: Exposure-Chemical
Source: patient
Exam Limitations: none
Time Seen by Provider: 01/18/24 18:42
Nursing documentation reviewed up to this point in time: agreed with
History of Present Illness
History of Present Illness:
Patient is a 68-year-old male with history hypertension, hyperlipidemia, insulin-dependent diabetes presenting to the emergency department concerns of worsening shortness of breath over the past 5 days. Patient states that last Monday he started
with exertional shortness of breath stating that he 'cannot catch his breath '. He also endorses worsening shortness of breath when he has been lying flat and a dry cough when lying flat. Patient denies any chest pain or chest discomfort.
Possible subjective fevers at home. Denies any abdominal pain, pain in his lower extremities, sore throat, nasal congestion.
Patient denies any personal history of cardiovascular disease or heart failure. Unknown family history as patient was adopted.
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 He is concerned that his symptoms may be
related to chemical exposure in the motel room.
Past History
<Marce Vargas PA-C - Last Filed: 01/18/24 23:55>
Past History
ED Past Medical History: Asthma, HTN, Hypercholesterolemia, IDDM and Other (Kidney stones, Chronic back pain)
ED Past Surgical History: Other (Back surgery with microdiscectomy, kidney stone surgery x3, in removal of a right lymph node)
Social History
Tobacco: Smoker
Alcohol: None
Drug: None
Personal: Single
Living: alone
Employment: Disabled
Family History
Family History: Other (Noncontributory)
Review of Systems
<Marce Vargas PA-C - Last Filed: 01/18/24 23:55>
Review of Systems
Allergies reviewed?: Yes
All Other Systems: ROS reviewed and negative except as documented in HPI and ROS
Phy Exam
<Marce Vargas PA-C - Last Filed: 01/18/24 23:55>
Physical Exam
Physical Exam:
Vitals: Mildly tachypneic, hypoxic with oxygen saturation of 86 on room air upon arrival.
General: Patient in no apparent distress. Nontoxic-appearing
Skin: Warm and dry, no rashes or lesions
Head: Normocephalic, atraumatic
Eyes: Sclera nonicteric. EOMs intact. No nystagmus.
Throat: Protecting airway
Neck: Normal ROM, no cervical spine tenderness, no meningismus. Trachea midline
Cardiac: Regular rate and rhythm, no murmurs.
Pulm: Hypoxic with O2 of 86 on room air�improved to 92 on 3 L. Mildly tachypneic. Diminished breath sounds at bilateral bases with fine crackles. No wheezing.
Abdomen: Abdomen soft. No abdominal tenderness.
Extremities: No evidence of cyanosis or edema
Neuro: Grossly intact.
Psychiatric: Normal affect.
Course
<Marce Vargas PA-C - Last Filed: 01/18/24 23:55>
Orders/Labs/Results
Orders:
Orders
01/18/24 Dinner
1800 calorie (15 carb) Diabetic
At Your Request: Full Participation
01/18/24 18:33
Electrocardiogram (*1) Urgent
Reason for Study: Shortness of Breath
01/18/24 18:51
Complete Blood Count/With Diff Urgent
Comprehensive Metabolic Panel Urgent
NT-proBNP Urgent
Comment: ADD ON
Troponin I Urgent
01/18/24 18:54
Chest [CR Chest - 2 Views ] Urgent
Comment:
Reason For Exam: sob
01/18/24 18:55
COVID-19 Antigen Urgent
Source: Nasal Swab
01/18/24 18:58
Add On- LAB Urgent
Tests Added?: pro-BNP
01/18/24 20:11
Aspirin Chewable [Low Strength Aspirin] 324 mg PO NOW STA
Azithromycin 500 mg/250 ml [Zithromax Infusion] 500 mg in 250 ml IV NOW
CefTRIAXone [Rocephin] 1,000 mg IV NOW STA
01/18/24 20:48
Dextrose 50%-Water [Dextrose 50% Syringe] 12.5 grams IV [id number] PRN
Dextrose 50%-Water [Dextrose 50% Syringe] 25 grams IV NOW STA
Glucagon [GlucaGen] 1 mg IM PRN PRN
01/18/24 20:49
Bedside Glucose Monitoring As Directed
Frequency: AC&HS
Additional Instructions:: Change to q6h if pt on TPN, tube feeding or not eating
01/18/24 21:17
Blood Culture Urgent
KYL[facility] Source: Blood/Venous
Specimen Description:
01/18/24 21:21
Legionella Urinary Antigen Routine
KYLER Source: Urine
Specimen Description:
Strep pneumoniae Antigen Routine
KYLER Source: Urine
Specimen Description:
Furosemide [Lasix] 20 mg IV NOW STA
01/18/24 21:25
Admit/Transfer Patient As Directed
Co-Sign Provider:
Level of Care: Inpatient admission
Assign to:: Telemetry
Physician / Group: nirali zheng
Diagnosis: pna vs chf, nonmitrop elevation
Reason for Telemetry: Arrhythmia
Date to Stop Telemetry: 01/21/24
Time to Stop Telemetry: 11:00
Reason for Hospitalization: pna vs chf, nonmitrop elevation
Expected length of stay greater than two midnights?: Yes
ELOS- Estimated Length of Stay in days: 4
I certify the patient meets the requirements for IP care: Yes
Code Status As Directed
Resuscitation Status: Full Code
01/18/24 21:28
PRN Pain Medication Management As Directed
May give lesser potent ordered pain med per pt: Yes
preference::
Protocol:: Medication orders for pain may be administered in a
manner that supports deferring to patient preference
when the pt is:
- Requesting an ordered lesser potent pain medication.
Least to most potent pain medications are defined
as: acetaminophen < NSAID < tramadol < opioids
(morphine, oxycodone, hydromorphone).
- Requesting a lesser dose of the same medication IF
ORDERED.
- Requesting a less intrusive route of administration
if both routes are prescribed by the provider (PO <
IV).
01/18/24 21:50
Electrocardiogram (*1) Urgent
Reason for Study: Shortness of Breath
01/18/24 22:00
Flush (0.9% Sodium Chloride) [Flush (Nss)] See Dose Instructions IV PER PROTOCOL
01/18/24 22:12
Troponin I Urgent
01/18/24 22:48
Acetaminophen [Tylenol] 650 mg PO Q4HPRN PRN
Bisacodyl [Dulcolax] 10 mg RECTAL [id number] PRN
Diphenhydramine [Benadryl] 75 mg PO HS
Docusate W/Senna [Senokot-S] 1 tablet PO BIDPRN PRN
Polyethylene Glycol Powder [Miralax] 17 grams PO DAILYPRN PRN
01/18/24 22:48
Sputum Culture [Respiratory Culture/Gram Stain] Routine
KYLER Source: Sputum
Specimen Description:
Activity As Directed
Activity Level: As Tolerated
Intake/ Output As Directed
Frequency: Per unit guidelines
Vital Signs As Directed
Frequency: Per unit guidelines
Weight As Directed
Frequency: Daily
Incentive Spirometry [Rx Incentive Spirometry] [RESP] Routine
Frequency: q1h while awake
O2 Therapy [RESP] Routine
Nasal Cannula Liter Flow: 2 LPM
Titrate/Wean O2 to maintain O2 sat greater than (%): 92
Pulse Ox/spot Check [RESP] Routine
Quantity: 1
Ot Eval And Treat Routine
Pt Eval And Treat Routine
Activity Level: As Tolerated
DX Deep Vein Thrombosis Video Routine
01/19/24 03:30
Troponin I Q6H
01/19/24 06:00
EKG [Electrocardiogram (*1)] IN AM
Reason for Study: Chest Pain
Echo 2D MMode Color/Doppler IN AM
Reason for Study: sob
Cardiovascular Evaluation IN AM
Complete Blood Count/With Diff IN AM
Comprehensive Metabolic Panel IN AM
Glycohemoglobin (HgbA1c) IN AM
01/19/24 08:00
Aspirin Low Dose EC [Aspir Low (Enteric Coated)] 81 mg PO DAILY
01/19/24 09:30
Troponin I Q6H
01/19/24 15:30
Troponin I Q6H
01/19/24 18:00
Enoxaparin Sodium [Lovenox] 40 mg SC QPM
01/19/24 20:00
CefTRIAXone [Rocephin] 1,000 mg IV Q24H
01/19/24 22:00
Azithromycin 500 mg/250 ml [Zithromax Infusion] 500 mg in 250 ml IV Q24H
01/20/24 06:00
Complete Blood Count/With Diff IN AM
Comprehensive Metabolic Panel IN AM
01/21/24 06:00
Complete Blood Count/With Diff IN AM
Comprehensive Metabolic Panel IN AM
01/21/24 11:00
DC Protocol for Telemetry ONCE
01/22/24 06:00
Complete Blood Count/With Diff IN AM
Comprehensive Metabolic Panel IN AM
Abnormal Lab Results
01/18/24
18:51
Absolute Neuts (auto) 6.6 H 10^3/uL
(1.4-6.5)
Absolute Monos (auto) 1.0 H 10^3/uL
(0.1-0.6)
Lymphocytes % 14.9 L %
(20.5-51.1)
Monocytes % 10.8 H %
(1.7-9.3)
Sodium 134 L mmol/L
(135-145)
BUN 21 H mg/dl
(9-20)
Creatinine 0.6 L mg/dL
(0.7-1.3)
Glucose 66 L mg/dl
(70-99)
AST 89 H U/L
(17-59)
ALT 77 H U/L
(0-50)
Troponin I 0.153 H* ng/ml
01/18/24 18:51
01/18/24 18:51
Vital Signs
Initial and Last Documented VS:
Initial Vital Signs
Temp Pulse Resp BP Pulse Ox
97.9 F 101 16 118/94 95
01/18/24 17:52 01/18/24 17:52 01/18/24 17:52 01/18/24 17:52 01/18/24 17:52
Last Documented Vital Signs
Temp Pulse Resp BP Pulse Ox
97.9 F 107 23 100/71 93
01/18/24 17:52 01/18/24 22:35 01/18/24 18:30 01/18/24 22:35 01/18/24 22:52
<Rolly Dhaliwal MD - Last Filed: 01/18/24 20:30>
Orders/Labs/Results
Orders:
Orders
01/18/24 Dinner
1800 calorie (15 carb) Diabetic
At Your Request: Full Participation
01/18/24 18:33
Electrocardiogram (*1) Urgent
Reason for Study: Shortness of Breath
01/18/24 18:51
Complete Blood Count/With Diff Urgent
Comprehensive Metabolic Panel Urgent
NT-proBNP Urgent
Comment: ADD ON
Troponin I Urgent
01/18/24 18:54
Chest [CR Chest - 2 Views ] Urgent
Comment:
Reason For Exam: sob
01/18/24 18:55
COVID-19 Antigen Urgent
Source: Nasal Swab
01/18/24 18:58
Add On- LAB Urgent
Tests Added?: pro-BNP
01/18/24 20:11
Aspirin Chewable [Low Strength Aspirin] 324 mg PO NOW STA
Azithromycin 500 mg/250 ml [Zithromax Infusion] 500 mg in 250 ml IV NOW
CefTRIAXone [Rocephin] 1,000 mg IV NOW STA
01/18/24 20:48
Dextrose 50%-Water [Dextrose 50% Syringe] 12.5 grams IV [id number] PRN
Dextrose 50%-Water [Dextrose 50% Syringe] 25 grams IV NOW STA
Glucagon [GlucaGen] 1 mg IM PRN PRN
01/18/24 20:49
Bedside Glucose Monitoring As Directed
Frequency: AC&HS
Additional Instructions:: Change to q6h if pt on TPN, tube feeding or not eating
01/18/24 21:17
Blood Culture Urgent
KYL[facility] Source: Blood/Venous
Specimen Description:
01/18/24 21:21
Legionella Urinary Antigen Routine
KY[facility] Source: Urine
Specimen Description:
Strep pneumoniae Antigen Routine
KYL[facility] Source: Urine
Specimen Description:
Furosemide [Lasix] 20 mg IV NOW STA
01/18/24 21:25
Admit/Transfer Patient As Directed
Co-Sign Provider:
Level of Care: Inpatient admission
Assign to:: Telemetry
Physician / Group: nirali zheng
Diagnosis: pna vs chf, nonmitrop elevation
Reason for Telemetry: Arrhythmia
Date to Stop Telemetry: 01/21/24
Time to Stop Telemetry: 11:00
Reason for Hospitalization: pna vs chf, nonmitrop elevation
Expected length of stay greater than two midnights?: Yes
ELOS- Estimated Length of Stay in days: 4
I certify the patient meets the requirements for IP care: Yes
Code Status As Directed
Resuscitation Status: Full Code
01/18/24 21:28
PRN Pain Medication Management As Directed
May give lesser potent ordered pain med per pt: Yes
preference::
Protocol:: Medication orders for pain may be administered in a
manner that supports deferring to patient preference
when the pt is:
- Requesting an ordered lesser potent pain medication.
Least to most potent pain medications are defined
as: acetaminophen < NSAID < tramadol < opioids
(morphine, oxycodone, hydromorphone).
- Requesting a lesser dose of the same medication IF
ORDERED.
- Requesting a less intrusive route of administration
if both routes are prescribed by the provider (PO <
IV).
01/18/24 21:50
Electrocardiogram (*1) Urgent
Reason for Study: Shortness of Breath
01/18/24 22:00
Flush (0.9% Sodium Chloride) [Flush (Nss)] See Dose Instructions IV PER PROTOCOL
01/18/24 22:12
Troponin I Urgent
01/18/24 22:48
Acetaminophen [Tylenol] 650 mg PO Q4HPRN PRN
Bisacodyl [Dulcolax] 10 mg RECTAL [id number] PRN
Diphenhydramine [Benadryl] 75 mg PO HS
Docusate W/Senna [Senokot-S] 1 tablet PO BIDPRN PRN
Polyethylene Glycol Powder [Miralax] 17 grams PO DAILYPRN PRN
01/18/24 22:48
Sputum Culture [Respiratory Culture/Gram Stain] Routine
KYL[facility] Source: Sputum
Specimen Description:
Activity As Directed
Activity Level: As Tolerated
Intake/ Output As Directed
Frequency: Per unit guidelines
Vital Signs As Directed
Frequency: Per unit guidelines
Weight As Directed
Frequency: Daily
Incentive Spirometry [Rx Incentive Spirometry] [RESP] Routine
Frequency: q1h while awake
O2 Therapy [RESP] Routine
Nasal Cannula Liter Flow: 2 LPM
Titrate/Wean O2 to maintain O2 sat greater than (%): 92
Pulse Ox/spot Check [RESP] Routine
Quantity: 1
Ot Eval And Treat Routine
Pt Eval And Treat Routine
Activity Level: As Tolerated
DX Deep Vein Thrombosis Video Routine
01/19/24 03:30
Troponin I Q6H
01/19/24 06:00
EKG [Electrocardiogram (*1)] IN AM
Reason for Study: Chest Pain
Echo 2D MMode Color/Doppler IN AM
Reason for Study: sob
Cardiovascular Evaluation IN AM
Complete Blood Count/With Diff IN AM
Comprehensive Metabolic Panel IN AM
Glycohemoglobin (HgbA1c) IN AM
01/19/24 08:00
Aspirin Low Dose EC [Aspir Low (Enteric Coated)] 81 mg PO DAILY
01/19/24 09:30
Troponin I Q6H
01/19/24 15:30
Troponin I Q6H
01/19/24 18:00
Enoxaparin Sodium [Lovenox] 40 mg SC QPM
01/19/24 20:00
CefTRIAXone [Rocephin] 1,000 mg IV Q24H
01/19/24 22:00
Azithromycin 500 mg/250 ml [Zithromax Infusion] 500 mg in 250 ml IV Q24H
01/20/24 06:00
Complete Blood Count/With Diff IN AM
Comprehensive Metabolic Panel IN AM
01/21/24 06:00
Complete Blood Count/With Diff IN AM
Comprehensive Metabolic Panel IN AM
01/21/24 11:00
DC Protocol for Telemetry ONCE
01/22/24 06:00
Complete Blood Count/With Diff IN AM
Comprehensive Metabolic Panel IN AM
Abnormal Lab Results
01/18/24
18:51
Absolute Neuts (auto) 6.6 H 10^3/uL
(1.4-6.5)
Absolute Monos (auto) 1.0 H 10^3/uL
(0.1-0.6)
Lymphocytes % 14.9 L %
(20.5-51.1)
Monocytes % 10.8 H %
(1.7-9.3)
Sodium 134 L mmol/L
(135-145)
BUN 21 H mg/dl
(9-20)
Creatinine 0.6 L mg/dL
(0.7-1.3)
Glucose 66 L mg/dl
(70-99)
AST 89 H U/L
(17-59)
ALT 77 H U/L
(0-50)
Troponin I 0.153 H* ng/ml
01/18/24 18:51
01/18/24 18:51
Vital Signs
Initial and Last Documented VS:
Initial Vital Signs
Temp Pulse Resp BP Pulse Ox
97.9 F 101 16 118/94 95
01/18/24 17:52 01/18/24 17:52 01/18/24 17:52 01/18/24 17:52 01/18/24 17:52
Last Documented Vital Signs
Temp Pulse Resp BP Pulse Ox
97.9 F 107 23 100/71 93
01/18/24 17:52 01/18/24 22:35 01/18/24 18:30 01/18/24 22:35 01/18/24 22:52
<Marce Vargas PA-C - Last Filed: 01/18/24 23:55>
MDM/Problems Addressed
Differential Diagnosis Includes:
Not limited to: Bronchitis, pneumonitis, pneumonia, CHF, ACS
MDM/Problems Addressed:
68-year-old male presenting with 5 days of exertional shortness of breath and dry cough worse when lying flat. No exertional chest pain. Subjective fevers at home. Patient is hypoxic to 86% on room air on arrival-placed on 2 L nasal cannula.
COVID-negative. Chest x-ray reviewed which shows a bibasilar pneumonia right> left. Labs reviewed. No leukocytosis. There is a mild nonspecific transaminitis. Troponin was elevated to 0.153�which I suspect to be related to demand ischemia from
hypoxia. EKG does show some T wave inversions in anterior leads�although patient is without any chest pain. Do not suspect ACS. Will give aspirin and trend Troponin. BMP was sent which is elevated to 3330. Patient has no known history of heart
failure and without any clinical evidence of fluid overload on exam. Blood pressures have been soft -will hold off on Lasix at this time. Patient's history does sound somewhat consistent with heart failure�patient may benefit from echocardiogram
for further evaluation. Do not suspect symptoms are related to patient's possible chemical exposure given they have been gradually progressing for the past 5 days
Given patient's hypoxia requiring oxygen and findings consistent with a bibasilar pneumonia�will start patient on IV antibiotics and admit to hospitalist for further management. Patient accepted to hospitalist service.
Chronic conditions affecting care:
Insulin-dependent diabetes
Acute Exacerbation and/or Progression of Chronic Illness:
N/A
<Marce Vargas PA-C - Last Filed: 01/18/24 23:55>
*Radiology
Radiology exam reviewed: preliminary read by ED provider
*Pulse Oximetry
Patient hypoxic: yes (86% on room air-placed on 3 L nasal cannula with oxygen saturation of 92)
*EKG
Interpreted by ED Provider?: Yes
EKG Intrepretation Date: 01/18/24
Interpretation: abnormal
Comparison EKG: changes noted
Heart Rate: 97
Rate: normal
Rhythm: sinus
Bennett: normal axis
Interval: normal interval
QRS Pattern: low voltage
Ischemia: T-wave inversion (Anterior leads)
*Ward Clerk Interpretation
Rate: normal
Interpretation: normal
Heart Rate: 100
Rhythm: sinus
*Critical Care Note
Total Time (30-74mins, 75-104mins- exclusive of procedures): Not Applicable
<Marce Vargas PA-C - Last Filed: 01/18/24 23:55>
Patient Management
Discussion with other providers: Hospitalist
Escalation/DeEscalation of care consider admission/obs:
Admit for IV antibiotics, further evaluation
ED Attending Note
<Marce Vargas PA-C - Last Filed: 01/18/24 23:55>
-
Portions of this chart may have been created with voice recognition software.� Occasional wrong word or��sound alike� substitutions may have occurred due to the inherent limitations of voice recognition software.
<Rolly Dhaliwal MD - Last Filed: 01/18/24 20:30>
ED Attending Note
Patient seen and examined by attending physician: Yes
ED Attending Note:
I have seen and evaluated the patient with a [id number] encounter. I have spoken to the advance practicer provider and involved in the medical history, the physical exam, medical decision making.
Evaluation and management service: agree unless noted differently below.
Results interpretation: agree unless noted differently below.
Focused HPI: 68-year-old male with medical history as documented presents to the emergency room for shortness of breath, cough. Patient reports onset of symptoms about a week ago�he thinks it may have been triggered by inhaling fumes from
fumigation treatment. He says he has had a hacking nonproductive cough and increasing shortness of breath particular with exertion. He reports chest tightness. He believes he has had a low-grade fever. Denies other complaints.
Physical exam: Awake alert not in distress. Mild tachypnea, mild tachycardia, normotensive, afebrile, pulse ox 85% on room air requiring 3 L nasal cannula. He has rhonchorous breath sounds right greater than left lung base. Occasional coughing.
No cardiac rubs gallops or murmurs appreciated. No edema in lower extremities, no JVD.
Medical Decision Makin-year-old male presents with cough and shortness of breath for the past week or so. Vitals and exam as above. Sent off labs including a CBC which was unremarkable, CMP which showed marginal transaminitis. Chest x-ray
appears to show bilateral pneumonia right greater than left. Troponin was marginally elevated suspect demand in the setting of his hypoxia; he did have some T wave inversions EKG but is not having chest pain, low suspicion that this is an acute
coronary syndrome. Will treat with aspirin and trend troponin. Will cover with antibiotics for community-acquired pneumonia. Admit for continued treatment.
Discharge Plan
Departure
Patient Disposition: Admit
Date of Disposition: 01/18/24
Time of Disposition: 20:23
Presentation/result/management discussed w/ accepting MD/DO: Hospitalist
Covid-19: Negative COVID-19
Discharge Problem:
Community acquired pneumonia of both lower lobes, Hypoxia, Elevated troponin
Interventions
Interventions:
*Risk Screen - Suicide Last Done: 01/18/24 19:06
*General Assessment Last Done: 01/18/24 19:06
*Neglect/Abuse Screening Last Done: 01/18/24 19:06
ED- Fall Risk Assessment Last Done: 01/18/24 22:52
*ED COVID-19 Vaccine History Last Done: 01/18/24 19:06
*Nursing Disposition Last Done: 01/18/24 22:52
ED- Pulmonary Assessment Last Done: 01/18/24 19:30
ED-Skin Assessment Last Done: 01/18/24 19:30
Discharge Date and Time
Discharge Date/Time: 01/18/24 22:54
[2024-01-18 19:15] LABS: ALT (SGPT) 77 U/L (0-50); AST (SGOT) 89 U/L (17-59); Albumin 3.5 g/dl (3.5-5.0); Alkaline Phosphatase 118 U/L (38-126); Blood Urea Nitrogen 21 mg/dl (9-20); Calcium 8.9 mg/dl (8.4-10.2); Carbon Dioxide 25 mmol/L (22-30); Chloride 103 mmol/L (98-107); Estimated Creatinine Clearance 108 ml/min; Glucose 66 mg/dl (70-99); Potassium 4.6 mmol/L (3.5-5.1); Sodium 134 mmol/L (135-145); Total Bilirubin 0.7 mg/dl (0.2-1.3); Total Protein 6.5 g/dl (6.3-8.2); eGFR > 60.00
[2024-01-18 19:25] LABS: Troponin I 0.153 ng/ml
[2024-01-18 19:26] LABS: COVID-19 Antigen Negative (Negative)
[2024-01-18 19:59] LABS: NT-proBNP 3330 pg/ml
--- NOTE | 2024-01-18 20:51 | HPS.HSE ---
Family Physician
-
Family Physician: NOT KNOW UNKNOWN - PT DOES
Chief Complaint
-
Nonproductive cough, shortness of breath
History of Present Illness
68-year-old male complaining of shortness of breath over the past 6days he reports shortness of breath, nonproductive cough that is worse with exertion and lying down. He reports some chills but denies any fever. He is currently living in a motel
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 He states this shortness of breath occurred after chemical cleaning in room 7 days ago. He thinks he went in the day after. He denies chest pain, palpitations,
abdominal pain, nausea, vomiting, diarrhea, urinary symptoms, peripheral edema. He states he has history of chronic back pain used to be on morphine 60 twice daily but his provider no longer takes his insurance and has been off pain meds for
approximately 3 years. He currently takes Benadryl 75 mg at night to help him fall asleep due to the pain. He denies ever smoking. He has past medical history of asthma, HTN, HLD, DM2, renal calculi, chronic back pain with history of
microdiscectomy, active smoker, history of prior opiate abuse, peripheral neuropathy
Medical History
Past Medical History
Past Medical History: Reports Other
Additional Past Medical History:
asthma
HTN
HLD
DM2
renal calculi
chronic back pain with history of microdiscectomy
active smoker
history of prior opiate abuse, peripheral neuropathy
Past Surgical History: Reports Other
Additional Past Surgical History:
Microdiscectomy lumbar
Lymph node removal right arm benign
Multiple renal calculi removal
Social History
Tobacco: Non-smoker
Alcohol: Occasional (Once a year)
Personal: Single
Living: Alone
Employment: Retired
Family History
Family History: Not pertinent
Allergies / Home Medications
Allergies reflects when Allergies were last updated in [facility].
Home Medications with original date entered in [facility]
Allergy/Medication List:
Allergies
Allergy/AdvReac Type Severity Reaction Status Date / Time
No Known Allergies Allergy Verified 12/22/23 12:57
Home Medications
diphenhydramine HCl 25 mg capsule (Benadryl) 75 mg PO HS 07/03/23
insulin NPH-regular 70-30 U-100 insulin 100 unit/mL subcutaneous pen (Humulin 70/30 U-100 KwikPen) 20 unit (0.2 mL) SC BID #15 mL 12/22/23
mtfohqwxqb-lhgljvaoqqmzedg-wqtnnssbjxaskkrj-acetaminophen capsule 2 cap PO HSPRN PRN cold symptoms 01/18/24
guaifenesin 100 mg/5 mL oral liquid 200 mg PO Q4HPRN PRN cough 01/18/24
pseudoephedrine-ibuprofen 30 mg-200 mg tablet 2 tab PO DAILYPRN PRN cold symptoms 01/18/24
Review of Systems
-
History Source: Patient
A 12 point ROS was completed and negative except as noted: Yes
Constitutional: Reports Chills; Denies Fever
EENT: Denies Sore Throat or Runny Nose
Respiratory: Reports Cough (Nonproductive) and Trouble Breathing
Cardiac: Denies Chest Pain, Diaphoresis, Palpitations or Syncope
Abdomen/GI: Denies Abdominal Pain, Nausea, Vomiting, Diarrhea, Constipated, Bloody Stools or Black Stools
: Denies Dysuria, Frequency, Flank Pain, Incontinence, Difficulty Voiding or Urgency
Musculoskeletal: Denies Joint Pain or Edema
Skin: Denies Itching or Rash
Neurological: Denies Dizzy or Headache
Endocrine: Reports No Symptoms
Hematologic/Lymphatic: Reports No Symptoms
Psych: Reports Calm
Physical Exam
Vital Signs
Vital Signs
Temp Pulse Resp BP Pulse Ox
97.9 F 98 23 95/81 92
01/18/24 17:52 01/18/24 18:30 01/18/24 18:30 01/18/24 18:20 01/18/24 19:04
Physical Exam
General: Comfortable and Conversant; No Pain, Fever or Chills
HEENT: NormoCephalic, Anicteric, Moist mucous membranes, Shelly Conjunctivae and No Ptosis
Respiratory: Rhonchi (Bilaterally throughout both lung ac and diminished bilaterally)
Cardiac: S1/S2 and Regular Rhythm; No Murmur, Rub, Gallop or Peripheral Edema
GI: Soft, Non Tender, Non Distended, Normal Bowel Sounds and No Hepatosplenomegaly
Rectal: Deferred by Provider
Genito-urinary: Deferred by me
Musculoskeletal: No Clubbing, No Cyanosis and No Edema
Skin: Warm and Dry; No Rash or Jaundice
Neuro: AO x 3, No Motor Deficits and Nonfocal/grossly intact; No Slurred Speech, Facial Droop or Tremors
Psych: Calm
Laboratory Results
-
01/18/24 18:51
01/18/24 18:51
Laboratory Results
Total Bilirubin 0.7 mg/dl (0.2-1.3) 01/18/24 18:51
AST 89 U/L (17-59) H 01/18/24 18:51
ALT 77 U/L (0-50) H 01/18/24 18:51
Alkaline Phosphatase 118 U/L (38-126) 01/18/24 18:51
Troponin I 0.153 ng/ml H* 01/18/24 18:51
Impression/Plan
-
Impression/plan:
Admit to telemetry
#Acute hypoxic resp insufficiency secondary to bilat PNA versus CHF
86% RA, 92% 2 LNC, 95/81
COVID-negative
-IV Zithromax, IV Rocephin given in ER
-Continue supportive O2
-Incentive spirometry
-Sputum culture
-strept ,legionella
-2D echo
-Will give IV Lasix 20 mg now
-Trend troponin
-Monitor intake and output
#Hypoglycemia/DM 2
BS 66
-Dextrose IV 25 g now
-Accu-Cheks with SSI low in a.m.
-Hold Humulin 70/30 20 units SQ twice daily
#Non myocardial injury versus NSTEMI
Troponin 0.153, trend troponins
Aspirin 325 given now will continue aspirin 81 mg daily
Check lipid profile
Consult cardiology
#Chronic transaminitis unclear
Improved from prior follow CMP
#Hypotension/HTN�benign
95/81 > 110 systolic
No BP meds listed
#HLD
No meds listed
#Chronic back pain/neuropathy
#History of microdiscectomy
-Used to see pain management up until 3 years ago when they stopped taking his insurance
#History of prior opiate use
#History of renal calculi with removal
#Insomnia
-Continue Benadryl 75 mg at bedtime
DVT prophylaxis
Subcu Lovenox
Full code
[2024-01-18] MEDS: ROCEPHIN 1000 MG IV (20:57)
[2024-01-18] MEDS: ZITHROMAX INFUSION 250 IV (21:07)
[2024-01-18] MEDS: DEXTROSE 50% SYRINGE 25 GRAMS IV (21:10)
[2024-01-18] MEDS: LOW STRENGTH ASPIRIN 324 MG PO (21:15)
--- NOTE | 2024-01-18 21:58 | W.PN.UPDATE ---
Update Note
Progress Note Update
This is an addendum to the H&P written by Kaylie Bland on 01/18/2024.� Patient seen and examined independently with SUPERINTENDENT METERS.
68-year-old male past medical history of asthma, hypertension, hyperlipidemia, diabetes, diabetic neuropathy, chronic back pain, polysubstance abuse with cocaine/opiate. anxiety, depression presenting with worsening shortness of breath over the past
5 days with dry cough with subjective fevers.� Intermittent chest pains.
Cardiac BNP 3000. Labs show transaminitis.�Chest x-ray report pending but appears to show bibasilar infiltrates with possible pleural effusions.� Patient with diminished breath sounds on lung examination with trace rhonchi.� No lower extremity
edema.� Possible bilateral pneumonia vs CHF exacerbation.
Ceftriaxone/azithromycin to treat pneumonia.� COVID negative.�Check strep antigen, Legionella antigen.� EKG looks unremarkable.� Trend troponins possible NSTEMI versus nonischemic myocardial injury.� Aspirin was given.� 20 IV Lasix, caution given
blood pressure in the 90s although it is improved at this time.� Check echocardiogram, cardiology consulted. Transaminitis could be from CHF.�
Hold insulin due to hypoglycemia.� Dextrose given.
[2024-01-18 22:20] LABS: Glucose - Point of Care 229 mg/dl (70-99)
[2024-01-18] MEDS: LASIX 20 MG IV (22:35)
[2024-01-18 22:41] LABS: Troponin I 0.145 ng/ml
[2024-01-18 23:10] VITALS: BP 114/75
[2024-01-18] MEDS: BENADRYL 75 MG PO (23:42)
[2024-01-19] VITALS (8 sets, daily range): BP systolic 87–155; BP diastolic 58–98; PULSE 98; O2SAT 94; BMI 22.8; BMI 21.7
[2024-01-19 04:22] LABS: ALT (SGPT) 67 U/L (0-50); AST (SGOT) 66 U/L (17-59); Albumin 3.3 g/dl (3.5-5.0); Alkaline Phosphatase 139 U/L (38-126); Blood Urea Nitrogen 16 mg/dl (9-20); Calcium 8.9 mg/dl (8.4-10.2); Carbon Dioxide 27 mmol/L (22-30); Chloride 104 mmol/L (98-107); Estimated Creatinine Clearance 112 ml/min; Glucose 183 mg/dl (70-99); HDL Cholesterol 48 mg/dl; LDL Cholesterol, Calculated 97 mg/dl; Potassium 3.8 mmol/L (3.5-5.1); Sodium 135 mmol/L (135-145); Total Bilirubin 0.5 mg/dl (0.2-1.3); Total Cholesterol 159 mg/dl (50-199); Triglyceride 70 mg/dl (10-149); Very Low Density Lipoprotein 14 mg/dl (0-30); eGFR > 60.00
[2024-01-19 04:47] LABS: Troponin I 0.152 ng/ml
[2024-01-19 05:12] LABS: Hepatitis C Antibody Negative (Negative)
--- NOTE | 2024-01-19 05:36 | PTCARENOTE ---
Patient received from ED via stretcher and ambulated to bed then bathroom. He was oriented to room and surroundings. ST on tele. +COPPOLA after ambulating to bathroom. He has scattered coarse breath sounds posteriorly. HRR. Urine specimen to
lab. Critical Troponin 0.153 TT to DIESEL TECHNICIAN, covering house. To continue to trend.
--- NOTE | 2024-01-19 07:21 | W.PN.HOSP.TC ---
Addendum entered and electronically signed by Odilon Lazaro MD 01/19/24 13:32:
acute hypoxic respiratory failure
acute hfref exacterbation with EF 35%, new diagonsis
NSTEMI
iv diuresis
monitor uop
-goal net neg of -1.-2l
- -if not achieving then increase lasix iv
daily weight
hf diet
keep k>4, mg>2
follow renal function
-back off of iv diuretics if bump in cr/bun
follow up cards
discuss need for ischemic work up for ref
will need to be started on gdmt
-for now bb, sglt2i, diuretic
-will need to be started on entresto +- mra
will need repeat 2d echo if hfref not related to ICM to reassess ef
if still low on repeat echo within next 3months then may need icd
wean o2
incentive elia use
trend trop to peak
Original Note:
Today's Communication/Plan
-
.
Assessment / Plan
Assessment / Plan
Patient is a 68 YO M with SOB for 6 days and nonproductive cough, worse with exertion and laying down.
#Acute hypoxic resp insufficiency secondary to bilat PNA versus CHF
86% RA, 92% 2 LNC, 95/81
COVID-negative
-IV Zithromax, IV Rocephin given in ER
-Continue supportive O2, arrived on 3L --> currently on 2L
-Wean patient to RA when appropriate, continue incentive spirometry.
- procalcitonin pending.
-Sputum culture pending
-strep ,legionella negative
-2D echo shows LVEF 35% with normal sized LV and moderately reduced systolic function
-IV Lasix 20 mg
-Trend troponin
-Monitor intake and output
#Hypoglycemia/DM 2
BS 66 --> 183 now
-Dextrose IV 25 g now
-Accu-Cheks with SSI low in a.m.
-Hold Humulin 70/30 20 units SQ twice daily
#Non myocardial injury versus NSTEMI
Troponin 0.153, trend troponins
Aspirin 325 given now will continue aspirin 81 mg daily
Lipid profile normal
Consult cardiology
#Chronic transaminitis unclear
Improved from prior follow CMP
#Hypotension/HTN�benign
95/81 > 110 systolic
No BP meds listed
#HLD
No meds listed
#Chronic back pain/neuropathy
#History of microdiscectomy
-Used to see pain management up until 3 years ago when they stopped taking his insurance
#History of prior opiate use
#History of renal calculi with removal
#Insomnia
-Continue Benadryl 75 mg at bedtime
DVT prophylaxis
Subcu Lovenox
Full code

Echo-
CONCLUSIONS
Normal LV size with moderately reduced systolic function.
LVEF is approximately 35% by visual estimation.
Global diffuse hypokinesis.
Stage III diastolic dysfunction suggestive of restrictive filling pattern and
increased filling pressures.
Normal right ventricular size and function.
Mild to moderate mitral regurgitation.
Mild aortic regurgitation.
Mild to moderate tricuspid regurgitation.
Estimated pulmonary artery pressure of 48 mmHg. Assuming a right atrial
pressure of 3 mmHg.
Small pericardial effusion. Pleural effusion present.
No prior study available for comparison.
Chest CT-
IMPRESSION:
No evidence of acute pulmonary embolism.
Pulmonary edema with moderate bilateral pleural effusions. Suspected left upper lobe pneumonia.
Cardiomegaly with coronary artery calcifications.
Anticipated Discharge: 24 - 48 hours
Subjective/Interval History
-
Date of Service: January 19, 2024
Patient states he was improving overnight. States that Lasix improved his symptoms. SOB improved, continues to be on oxygen.
Objective Data
-
Labs:
Laboratory Results
01/19/24 01/19/24
04:01 06:00
WBC Pending
Hgb Pending
Hct Pending
Plt Count Pending
Sodium 135
Potassium 3.8
Chloride 104
Carbon Dioxide 27
BUN 16
Creatinine 0.6 L
Glucose 183 H
Calcium 8.9
Total Bilirubin 0.5
AST 66 H
ALT 67 H
Alkaline Phosphatase 139 H
Vital Signs:
Vital Signs
Temp Pulse Resp BP Pulse Ox
98.3 F 100 20 100/68 95
01/19/24 03:50 01/19/24 03:50 01/19/24 03:50 01/19/24 03:50 01/19/24 03:50
I&O
01/18/24 01/19/24 01/20/24
06:59 06:59 06:59
Intake Total 240 / 240
Balance 240 / 240
Review of Systems
-
History Source: Patient
Constitutional: Reports No Symptoms
EENT: Reports No Symptoms Reported
Respiratory: Reports Cough (improved) and Trouble Breathing (improved)
Cardiac: Reports No Symptoms
Abdomen/GI: Reports No Symptoms
Musculoskeletal: Reports No Symptoms
Physical Exam
-
General: Well Developed, Comfortable and Conversant
HEENT: Normocephalic and Atraumatic
Cardiac: Regular Rhythm and S1/S2
GI: Soft, Nontender and Nondistended
Skin: Warm and Dry
Neuro: AO x 3
Psych: Calm
Data Reviewed
-
CT Scan: Report Reviewed by me
Labs: Labs Reviewed by me and Discussed with Physician
Old Records: Reviewed
[2024-01-19 07:32] LABS: Glucose - Point of Care 130 mg/dl (70-99)
[2024-01-19] MEDS: ASPIR LOW (ENTERIC COATED) 81 MG PO (07:42)
--- NOTE | 2024-01-19 07:54 | CON.CAR ---
Addendum entered and electronically signed by Winston Clark MD 01/19/24 10:44:
I saw and examined the patient.
The GEAR SHAPER SET UP OPERATOR's note was reviewed and I agree with the note.
Comment: 68 year old male with uncontrolled type 2 diabetes mellitus, dyslipidemia, chronic back pain, prior hepatitis B, and former kidney stones who presented to the emergency department with a chief complaint of shortness of breath. He was found
to have moderately reduced EF and has been diuresing.
- GDMT for HFrEF
- lasix IV for now
- Start Farxiga 10 mg, Metop XL 25, and Valsartan 80 mg
- Entresto likely unaffordable
- MRA as outpt
Original Note:
Consultation
Consultation Request
Date/Time Consultation Requested: 01/18/2024 22:45
Date/Time Consultation Performed: 01/19/2024 07:50
Requesting Provider: AUSTYN Beck
Performing Provider: AUSTYN Espinoza for Dr. Clark
Reason for Consultation: Concern for CHF
Medical History
-
Chief Complaint: Shortness of breath
History of Present Illness:
Foster Edouard is a 68 year old male with uncontrolled type 2 diabetes mellitus, dyslipidemia, chronic back pain, prior hepatitis B, and former kidney stones who presented to the emergency department with a chief complaint of shortness of breath. He
noticed that when riding his bicycle he was very short of breath and needed frequent rests. This started approximately 1 week ago. He denies PND and orthopnea. He is having no chest pain. Unfortunately, he is adopted and has no family history.
Cardiology was consulted for concern for heart failure versus pneumonia.
Past Medical History
Past Medical History: Asthma, Hypercholesterolemia, IDDM and Other (Hepatitis B)
Past Surgical History: Orthopedic
Social History
Tobacco: Non-Smoker
Alcohol: Occasional
Drug: None
Personal: Single
Living: Homeless (Currently living in a motel)
Employment: Retired
Family History
Family History: Adopted
Allergies / Home Medications
Allergy/AdvReac Type Severity Reaction Status Date / Time
No Known Allergies Allergy Verified 12/22/23 12:57
�Medication �Instructions �Recorded �Confirmed �Type
diphenhydramine HCl 25 mg capsule 75 mg PO HS 07/03/23 01/18/24 History
(Benadryl)
insulin NPH-regular 70-30 U-100 20 unit (0.2 mL) SC BID #15 mL 12/22/23 01/18/24 Rx
insulin 100 unit/mL subcutaneous
pen (Humulin 70/30 U-100 KwikPen)
cviigszhez-fokmpwnekquamyt-rxujxapzsvizjdrz-acetaminophen 2 cap PO HSPRN PRN cold symptoms 01/18/24 01/18/24 History
capsule
guaifenesin 100 mg/5 mL oral liquid 200 mg PO Q4HPRN PRN cough 01/18/24 01/18/24 History
pseudoephedrine-ibuprofen 30 2 tab PO DAILYPRN PRN cold symptoms 01/18/24 01/18/24 History
mg-200 mg tablet
Review of Systems
-
History Source: Patient
All other systems: Negative unless noted
Constitutional: Fatigue
EENT: No Symptoms
Respiratory: Trouble Breathing
Cardiac: No Symptoms
Abdomen/GI: No Symptoms
: No Symptoms
Musculoskeletal: No Symptoms
Skin: No Symptoms
Neurological: No Symptoms
Endocrine: No Symptoms
Hematologic/Lymphatic: No Symptoms
Physical Exam
Vital Signs
Temp Pulse Resp BP Pulse Ox
98.0 F 92 17 155/98 95
01/19/24 07:00 01/19/24 07:00 01/19/24 07:00 01/19/24 07:00 01/19/24 07:00
Lab Results
01/19/24 04:01
Troponin I 0.152 ng/ml H* 01/19/24 04:01
Wcw-T-Vjxemnqsykh Pept 3330 pg/ml 01/18/24 18:51
Physical Exam
General: No Apparent Distress, Comfortable and Other (Chronically ill)
HEENT: Normocephalic, Anicteric and Other (lip smacking)
Respiratory: Clear and Non Labored Respirations
Cardiac: S1/S2 and Regular Rhythm; Negative Peripheral Edema
Breast: Deferred by me
GI: Soft, Non Tender, Non Distended and Normal Bowel Sounds
Rectal: Deferred by Provider
Genito-urinary: No Costovertebral Tender
Musculoskeletal: No Clubbing, No Cyanosis and No Edema
Skin: Warm and Dry
Neuro: AO x 3
Hematologic/Lymphatic: No Lymphadenopathy
Psych: Calm
Impression / Plan
-
BACKGROUND: 68M with uncontrolled type 2 diabetes mellitus, dyslipidemia, chronic back pain, prior hepatitis B, and former kidney stones who presented to the emergency department with a chief complaint of shortness of breath.
Acute hypoxic respiratory insufficiency
-This is likely in the setting of acute heart failure
-COVID-negative
Heart failure, type unknown, acute
-Diuresis with furosemide 20 mg IV twice daily
-Case management to maddox SGLT2i
-He is not an ideal candidate for MRA given his lack of outpatient follow-up in the past
-Echocardiogram today
-Trend daily weight, I/O, and BMP with diuresis
Abnormal troponin, likely nonischemic myocardial injury in the setting of acute heart failure
-Chest pain-free
-Trend to peak, currently 0.152
Type II DM, uncontrolled, Hgba1c 11/2023 17.1%
HLD, LDL 97, he should be on a high intensity statin, start atorvastatin 40mg
Data Reviewed
-
EKG: Report Reviewed by me (Sinus rhythm, anterior T wave abnormality)
Radiology: Report Reviewed by me (CXR: Bilateral parenchymal opacities within the mid to lower lungs, most suggestive of pulmonary edema. Main differential consideration of bilateral pneumonia.)
Labs: Labs Reviewed by me
Old Records: Reviewed
[2024-01-19] MEDS: LASIX 20 MG IV ×2 (09:51→17:03)
[2024-01-19 09:55] LABS: % Basophils 0.7 % (0-2); % Eosinophils 2.2 % (0-6); % Immature Granulocytes 0.5 % (0-0.5); % Monocytes 11.5 % (1.7-9.3); % Neutrophils 66.1 % (42.2-75.2); Absolute Basophils 0.1 10^3/uL (0-0.2); Absolute Eosinophils 0.2 10^3/uL (0-0.7); Absolute Immature Granulocytes 0.1 10^3/uL (0-0.05); Absolute Lymphocytes 1.9 10^3/uL (1.2-3.4); Absolute Monocytes 1.1 10^3/uL (0.1-0.6); Absolute Neutrophils 6.6 10^3/uL (1.4-6.5); Hematocrit 42.8 % (39.0-52.0); Hemoglobin 15.2 g/dL (13.0-18.0); Mean Corp Hgb Conc. 35.5 g/dL (33.0-37.0); Mean Corpuscular Hgb 30.6 pg (27.0-31.0); Mean Corpuscular Volume 86.1 fL (80.0-94.0); Mean Platelet Volume 9.4 fL (7.4-10.4); Nucleated Red Blood Cells % 0 % (-); Platelet Count 226 10^3/uL (130-400); Red Blood Cell Count 4.97 10^6/uL (4.70-6.10); White Blood Cell Count 9.9 10^3/uL (4.8-10.8)
[2024-01-19 10:19] LABS: Troponin I 0.134 ng/ml
--- NOTE | 2024-01-19 10:29 | CM ---
Received consult from AUSTYN for Cardiology, to check cost on Faxiga and Jardiance for patient.
Jardiance not covered under her plan.
322-1 Farxiga-30 day supply 4.60. This was relayed back. Will update patient at time of assessment.
[2024-01-19 11:25] LABS: Glucose - Point of Care 282 mg/dl (70-99)
[2024-01-19] MEDS: DIOVAN 80 MG PO (11:35)
[2024-01-19] MEDS: FARXIGA 10 MG PO (11:35)
[2024-01-19 13:30] LABS: Glycohemoglobin (HgbA1c) 10.8 % (4.0-5.6)
[2024-01-19 14:13] LABS: Procalcitonin 0.14 ng/ml (0.0-0.25)
--- NOTE | 2024-01-19 14:15 | CM ---
Reviewed chart, attempted to meet with patient but he would not wake up. Placed a call to his friend who is listed on chart however call went to voice mail. Will attempt to see again later this afternoon.
[2024-01-19 16:33] LABS: Glucose - Point of Care 206 mg/dl (70-99)
[2024-01-19] MEDS: LOVENOX 40 MG SC (17:09)
[2024-01-19] MEDS: LIPITOR 40 MG PO (17:09)
[2024-01-19] MEDS: TYLENOL 650 MG PO (20:57)
[2024-01-19] MEDS: BENADRYL 75 MG PO (20:57)
[2024-01-19] MEDS: ROCEPHIN 1000 MG IV (20:58)
[2024-01-19] MEDS: STERILE WATER FOR INJECTION 10 ML IV (20:58)
[2024-01-19] MEDS: ZITHROMAX INFUSION 250 IV (20:58)
[2024-01-19 21:28] LABS: Glucose - Point of Care 261 mg/dl (70-99)
[2024-01-20] VITALS (8 sets, daily range): BP systolic 91–106; BP diastolic 63–73; BMI 21.3
[2024-01-20 07:32] LABS: % Basophils 0.8 % (0-2); % Eosinophils 3.3 % (0-6); % Immature Granulocytes 0.6 % (0-0.5); % Lymphocytes 25.9 % (20.5-51.1); % Monocytes 12.9 % (1.7-9.3); % Neutrophils 56.5 % (42.2-75.2); Absolute Basophils 0.1 10^3/uL (0-0.2); Absolute Eosinophils 0.3 10^3/uL (0-0.7); Absolute Immature Granulocytes 0.1 10^3/uL (0-0.05); Absolute Lymphocytes 2.2 10^3/uL (1.2-3.4); Absolute Monocytes 1.1 10^3/uL (0.1-0.6); Absolute Neutrophils 4.9 10^3/uL (1.4-6.5); Hemoglobin 15.4 g/dL (13.0-18.0); Mean Corp Hgb Conc. 35.8 g/dL (33.0-37.0); Mean Corpuscular Hgb 29.7 pg (27.0-31.0); Mean Platelet Volume 9.3 fL (7.4-10.4); Nucleated Red Blood Cells % 0 % (-); Platelet Count 231 10^3/uL (130-400); Red Blood Cell Count 5.18 10^6/uL (4.70-6.10); Red Cell Dist. Width 12.7 % (11.5-14.5); White Blood Cell Count 8.6 10^3/uL (4.8-10.8)
[2024-01-20 07:53] LABS: ALT (SGPT) 63 U/L (0-50); AST (SGOT) 63 U/L (17-59); Albumin 3.3 g/dl (3.5-5.0); Alkaline Phosphatase 129 U/L (38-126); Blood Urea Nitrogen 18 mg/dl (9-20); Calcium 8.9 mg/dl (8.4-10.2); Carbon Dioxide 23 mmol/L (22-30); Chloride 101 mmol/L (98-107); Estimated Creatinine Clearance 104 ml/min; Glucose 139 mg/dl (70-99); Potassium 4.1 mmol/L (3.5-5.1); Sodium 133 mmol/L (135-145); Total Bilirubin 0.6 mg/dl (0.2-1.3); Total Protein 6.1 g/dl (6.3-8.2); eGFR > 60.00
[2024-01-20 09:05] LABS: Glucose - Point of Care 163 mg/dl (70-99)
[2024-01-20] MEDS: FARXIGA 10 MG PO (09:09)
[2024-01-20] MEDS: LASIX 20 MG IV (09:09)
[2024-01-20] MEDS: ASPIR LOW (ENTERIC COATED) 81 MG PO (09:09)
[2024-01-20] MEDS: NOVOLOG FLEXPEN-MODERATE RESISTANCE 1 UNITS SC ×3 (09:11→17:18)
[2024-01-20] MEDS: NOVOLOG FLEXPEN 5 UNITS SC ×3 (09:12→17:19)
--- NOTE | 2024-01-20 11:47 | W.PN.CD ---
Today's Communication / Plan
-
Cont diuresis
Increase BB
GDMT limited by BP
Ischemic eval as outpt
Impression / Plan
-
BACKGROUND: 68M with uncontrolled type 2 diabetes mellitus, dyslipidemia, chronic back pain, prior hepatitis B, and former kidney stones who presented to the emergency department with a chief complaint of shortness of breath.
Acute hypoxic respiratory insufficiency
-This is likely in the setting of acute heart failure
-COVID-negative
Acute HFrEF TTE below
-Diuresis with furosemide 20 mg IV twice daily
GDMT:
-Farxiga 10 mg daily
- Metop XL 25 bid
-Arb/ ARNI limited by BP
- MRA as outpatienet
-Trend daily weight, I/O, and BMP with diuresis
Abnormal troponin, likely nonischemic myocardial injury in the setting of acute heart failure
-Chest pain-free
-Trend to peak
- ischemic eval as outpt
Type II DM, uncontrolled, Hgba1c 11/2023 17.1%
HLD, LDL 97, he should be on a high intensity statin, start atorvastatin 40mg
Subjective: Breathing improved
TTE: CONCLUSIONS
Normal LV size with moderately reduced systolic function.
LVEF is approximately 35% by visual estimation.
Global diffuse hypokinesis.
Stage III diastolic dysfunction suggestive of restrictive filling pattern and
increased filling pressures.
Normal right ventricular size and function.
Mild to moderate mitral regurgitation.
Mild aortic regurgitation.
Mild to moderate tricuspid regurgitation.
Estimated pulmonary artery pressure of 48 mmHg. Assuming a right atrial
pressure of 3 mmHg.
Small pericardial effusion. Pleural effusion present.
No prior study available for comparison.
Physical Exam
Vital Signs/Labs
Vital Signs
Temp Pulse Resp BP Pulse Ox
97.9 F 98 17 97/73 93
01/20/24 08:00 01/20/24 08:00 01/20/24 08:00 01/20/24 08:00 01/20/24 08:00
01/19/24 01/20/24 01/21/24
06:59 06:59 06:59
Actual Weight 138 lb 8 oz 135 lb 9.6 oz
01/20/24 06:39
01/20/24 06:39
Triglycerides 70 mg/dl (10-149) 01/19/24 04:01
LDL Cholesterol, Calc 97 mg/dl 01/19/24 04:01
VLDL Cholesterol, Calc 14 mg/dl (0-30) 01/19/24 04:01
HDL Cholesterol 48 mg/dl 01/19/24 04:01
01/18/24
18:51
Ivh-B-Dznekgpkyzc Pept 3330
LAB Results
01/18/24 01/18/24 01/19/24
18:51 22:12 04:01
Troponin I 0.153 H* 0.145 H* 0.152 H*
01/19/24 01/19/24
09:45 15:48
Troponin I 0.134 H* 0.130 H*
Physical Exam
Constitutional: No acute distress
EENT: Anicteric
Cardiovascular: Rhythm & rate is regular and Pedal edema is absent
Respiratory: Respiratory effort normal and Crackles Present
GI: Soft
Neuro/Psych: AO x 3
Data Reviewed
-
Date of Service: January 20, 2024
EKG: Tracing Personally Visualized and interpreted
Echo: Tracing Personally Visualized and interpreted and Report Reviewed by me
Labs: Labs Reviewed by me
[2024-01-20 12:27] LABS: Glucose - Point of Care 157 mg/dl (70-99)
--- NOTE | 2024-01-20 12:47 | W.PN.HOSP.TC ---
Today's Communication/Plan
-
ivdiuresis
Assessment / Plan
Assessment / Plan
acute hypoxic respiratory failure
acute hfref exacterbation with EF 35%, new diagonsis
Congestive hepatopathy
NSTEMI
COVID-negative
iv diuresis
monitor uop
-goal net neg of -1.-2l
- -if not achieving then increase lasix iv
daily weight
hf diet
keep k>4, mg>2
Follow renal function
-back off of iv diuretics if bump in cr/bun
Plan for outpatient if able to follow-up with cardiology
Defer ischemic workup at this time.
will need to be started on gdmt
-for now bb, sglt2i, diuretic
-will need to be started on entresto +- mra
if still low on repeat echo within next 3months then may need icd
Maintain SpO2 greater than 92%
Continue incentive spirometer use
Do not trend troponin any further as peak was 0.153 and that was the initial troponin
Can check right upper quadrant ultrasound
Can check acute hepatitis panel
Cardiology discussion
I personally spoke with cardiology this afternoon. Hold off on ischemic testing as there is concern for compliance and high risk of in-stent thrombosis if found to have obstructive disease as he is not unlikely to be be compliant with medications
and will be lost to follow-up.
However we will provide him with outpatient follow-up and if he does follow-up on a regular basis at that time they would consider doing an ischemic eval which would consist of C.
Would like to speak case management/social work about drug use resources
Anticipated Discharge: 24 - 48 hours
Subjective/Interval History
-
Date of Service: January 20, 2024
Seen and examined. No new complaints. No acute overnight events.
States breathing has improved however still somewhat difficult. However he is happy that he is off of oxygen.
He continues to ask could cigarette smoke and chemicals be the cause of his shortness of breath. I informed him that he has heart failure.
Objective Data
-
Labs:
Laboratory Results
01/20/24
06:39
WBC 8.6
Hgb 15.4
Hct 43.0
Plt Count 231
Sodium 133 L
Potassium 4.1
Chloride 101
Carbon Dioxide 23
BUN 18
Creatinine 0.6 L
Glucose 139 H
Calcium 8.9
Total Bilirubin 0.6
AST 63 H
ALT 63 H
Alkaline Phosphatase 129 H
Vital Signs:
Vital Signs
Temp Pulse Resp BP Pulse Ox
98.7 F 103 19 92/63 94
01/20/24 11:00 01/20/24 11:00 01/20/24 11:00 01/20/24 11:00 01/20/24 11:00
I&O
01/19/24 01/20/24 01/21/24
06:59 06:59 06:59
Intake Total 240 / 240 600 / 600
Balance 240 / 240 600 / 600
--- NOTE | 2024-01-20 13:08 | CM ---
Met with pt at bedside to complete IA
Per pt Lives alone in a motel room(past 3 years) - no steps to enter
Reports independent, on disability. Has car but does not drive. Prepares meals, does own shopping
DME - none
SNF/HH - no past hx - has done outpatient PT in past
PCP - none
Ph[facility] - [facility]
Plan - anticipate home no needs when medically stable
[2024-01-20 17:06] LABS: Glucose - Point of Care 164 mg/dl (70-99)
[2024-01-20] MEDS: LASIX IV (17:15)
[2024-01-20] MEDS: LOVENOX 40 MG SC (17:16)
[2024-01-20] MEDS: LIPITOR 40 MG PO (17:17)
[2024-01-20] MEDS: TYLENOL 650 MG PO (19:58)
[2024-01-20] MEDS: TOPROL XL 25 MG PO (19:58)
[2024-01-20] MEDS: STERILE WATER FOR INJECTION 10 ML IV (19:59)
[2024-01-20] MEDS: ROCEPHIN 1000 MG IV (19:59)
[2024-01-20 21:38] LABS: Glucose - Point of Care 246 mg/dl (70-99)
[2024-01-20] MEDS: ZITHROMAX INFUSION 250 IV (21:42)
[2024-01-20] MEDS: BENADRYL 75 MG PO (21:42)
[2024-01-20] MEDS: LANTUS 0.09 UNITS SC (21:42)
--- NOTE | 2024-01-20 22:35 | PTCARENOTE ---
Patient called to say his IV site was extremely painful and burning, Pt had azithromycin IV running. prior to starting, IV flushed without difficulty. Site is slightly red. Switched IV abx to other peripheral site and removed the left forearm IV.
Patient upset that we are 'letting him suffer' and 'no one is listening to him and giving him his pain meds' Explained to patient that he needs to have conversation with his doctors during the day about his pain management and that as a nurse it is
not within my scope of practice to prescribe medications. Pt upset with that answer. Offered patient ice pack for his arm. administered tylenol as ordered for back pain to help as well. Will continue to monitor.
[2024-01-21 03:10] VITALS: BP 97/60
[2024-01-21 06:00] VITALS: BMI 21.2
[2024-01-21 06:22] VITALS: BMI 21.2
[2024-01-21 07:45] VITALS: BP 136/80
[2024-01-21 07:57] LABS: % Eosinophils 3.7 % (0-6); % Immature Granulocytes 0.8 % (0-0.5); % Lymphocytes 27.2 % (20.5-51.1); % Monocytes 10.7 % (1.7-9.3); % Neutrophils 56.6 % (42.2-75.2); Absolute Basophils 0.1 10^3/uL (0-0.2); Absolute Eosinophils 0.4 10^3/uL (0-0.7); Absolute Immature Granulocytes 0.1 10^3/uL (0-0.05); Absolute Lymphocytes 2.6 10^3/uL (1.2-3.4); Absolute Neutrophils 5.5 10^3/uL (1.4-6.5); Hemoglobin 16.6 g/dL (13.0-18.0); Mean Corp Hgb Conc. 36.1 g/dL (33.0-37.0); Mean Platelet Volume 9.1 fL (7.4-10.4); Nucleated Red Blood Cells % 0 % (-); Platelet Count 260 10^3/uL (130-400); Red Blood Cell Count 5.54 10^6/uL (4.70-6.10); Red Cell Dist. Width 12.4 % (11.5-14.5); White Blood Cell Count 9.7 10^3/uL (4.8-10.8)
[2024-01-21 08:29] LABS: ALT (SGPT) 67 U/L (0-50); AST (SGOT) 71 U/L (17-59); Albumin 3.6 g/dl (3.5-5.0); Alkaline Phosphatase 128 U/L (38-126); Blood Urea Nitrogen 25 mg/dl (9-20); Calcium 9.2 mg/dl (8.4-10.2); Carbon Dioxide 26 mmol/L (22-30); Chloride 99 mmol/L (98-107); Estimated Creatinine Clearance 104 ml/min; Glucose 155 mg/dl (70-99); Potassium 4.3 mmol/L (3.5-5.1); Sodium 133 mmol/L (135-145); Total Bilirubin 0.6 mg/dl (0.2-1.3); Total Protein 6.6 g/dl (6.3-8.2); eGFR > 60.00
[2024-01-21 08:36] LABS: Glucose - Point of Care 230 mg/dl (70-99)
[2024-01-21] MEDS: NOVOLOG FLEXPEN-MODERATE RESISTANCE 3 UNITS SC (08:38)
[2024-01-21] MEDS: NOVOLOG FLEXPEN 5 UNITS SC ×3 (08:39→16:33)
[2024-01-21] MEDS: TOPROL XL 25 MG PO (08:39)
[2024-01-21] MEDS: ASPIR LOW (ENTERIC COATED) 81 MG PO (08:39)
[2024-01-21] MEDS: FARXIGA 10 MG PO (08:39)
[2024-01-21] MEDS: LASIX 20 MG IV ×2 (08:39→16:32)
[2024-01-21 09:11] LABS: Hepatitis B Core Ab, Total Reactive (Negative); Hepatitis B Surface Antibody Negative
--- NOTE | 2024-01-21 10:33 | W.PN.CD ---
Today's Communication / Plan
-
Cont IV diuresis likely transition to daily 20 mg lasix PO tomorrow
Valsartan 80 if BP allows
Impression / Plan
-
BACKGROUND: 68M with uncontrolled type 2 diabetes mellitus, dyslipidemia, chronic back pain, prior hepatitis B, and former kidney stones who presented to the emergency department with a chief complaint of shortness of breath.
Acute hypoxic respiratory insufficiency
-This is likely in the setting of acute heart failure
-COVID-negative
Acute HFrEF TTE below
-Diuresis with furosemide 20 mg IV twice daily
GDMT:
-Farxiga 10 mg daily
- Metop XL 25 bid
-Arb/ ARNI limited by BP, will try and start valsartan if BP allows
- MRA as outpatienet
-Trend daily weight, I/O, and BMP with diuresis
Abnormal troponin, likely nonischemic myocardial injury in the setting of acute heart failure
-Chest pain-free
-Trend to peak
- ischemic eval as outpt
Type II DM, uncontrolled, Hgba1c 11/2023 17.1%
HLD, LDL 97, he should be on a high intensity statin, start atorvastatin 40mg
Subjective: Breathing improved
TTE: CONCLUSIONS
Normal LV size with moderately reduced systolic function.
LVEF is approximately 35% by visual estimation.
Global diffuse hypokinesis.
Stage III diastolic dysfunction suggestive of restrictive filling pattern and
increased filling pressures.
Normal right ventricular size and function.
Mild to moderate mitral regurgitation.
Mild aortic regurgitation.
Mild to moderate tricuspid regurgitation.
Estimated pulmonary artery pressure of 48 mmHg. Assuming a right atrial
pressure of 3 mmHg.
Small pericardial effusion. Pleural effusion present.
No prior study available for comparison.
Physical Exam
Vital Signs/Labs
Vital Signs
Temp Pulse Resp BP Pulse Ox
98 F 73 20 136/80 95
08/18/24 07:45 01/21/24 07:45 01/21/24 07:45 01/21/24 07:45 01/21/24 07:45
01/20/24 01/21/24 01/22/24
06:59 06:59 06:59
Actual Weight 135 lb 9.6 oz 135 lb 1 oz
01/21/24 07:33
01/21/24 07:33
Triglycerides 70 mg/dl (10-149) 01/19/24 04:01
LDL Cholesterol, Calc 97 mg/dl 01/19/24 04:01
VLDL Cholesterol, Calc 14 mg/dl (0-30) 01/19/24 04:01
HDL Cholesterol 48 mg/dl 01/19/24 04:01
01/18/24
18:51
Xnh-R-Adzjtsueitw Pept 3330
LAB Results
01/18/24 01/18/24 01/19/24
18:51 22:12 04:01
Troponin I 0.153 H* 0.145 H* 0.152 H*
01/19/24 01/19/24
09:45 15:48
Troponin I 0.134 H* 0.130 H*
Physical Exam
Constitutional: No acute distress and Comfortable
EENT: Anicteric
Cardiovascular: Rhythm & rate is regular and Pedal edema is absent
Respiratory: Respiratory effort normal and Crackles Present
GI: Soft
Neuro/Psych: AO x 3
Data Reviewed
-
Date of Service: January 21, 2024
EKG: Tracing Personally Visualized and interpreted (sr)
Echo: Report Reviewed by me
Labs: Labs Reviewed by me
[2024-01-21 10:43] LABS: Hepatitis B Surface Antigen Reactive (Negative)
[2024-01-21 10:44] LABS: Hepatitis A Antibody, Total Positive (Negative)
[2024-01-21 11:00] VITALS: BP 94/61
[2024-01-21 11:23] LABS: Hepatitis A IgM Antibody Negative (Negative); Hepatitis B Core Ab, IgM Negative (Negative)
[2024-01-21 11:27] LABS: Glucose - Point of Care 166 mg/dl (70-99)
[2024-01-21] MEDS: NOVOLOG FLEXPEN-MODERATE RESISTANCE 1 UNITS SC (12:05)
--- NOTE | 2024-01-21 12:33 | W.PN.HOSP.TC ---
Addendum entered and electronically signed by Odilon Lazaro MD 01/21/24 14:21:
acute hypoxic respiratory failure
acute hfref exacterbation with EF 35%, new diagonsis
Congestive hepatopathy
NSTEMI
COVID-negative
iv diuresis per cards
-no jvd, cta, no peripheral edema, bump in bun and bicarb likely related to getting close to euvolemia if not already there. cards recs diuresis for today then transition to po
monitor uop
-goal net neg of -1.-2l
- -if not achieving then increase lasix iv
daily weight
hf diet
keep k>4, mg>2
Follow renal function
-back off of iv diuretics if bump in cr/bun
Plan for outpatient if able to follow-up with cardiology
Defer ischemic workup at this time.
will need to be started on gdmt
-for now bb, sglt2i, diuretic
-will need to be started on entresto +- mra
if still low on repeat echo within next 3months then may need icd
Maintain SpO2 greater than 92%
Continue incentive spirometer use
Do not trend troponin any further as peak was 0.153 and that was the initial troponin
Can check right upper quadrant ultrasound
Can check acute hepatitis panel
Cardiology discussion
I personally spoke with cardiology this afternoon. Hold off on ischemic testing as there is concern for compliance and high risk of in-stent thrombosis if found to have obstructive disease as he is not unlikely to be be compliant with medications
and will be lost to follow-up.
However we will provide him with outpatient follow-up and if he does follow-up on a regular basis at that time they would consider doing an ischemic eval which would consist of LHC.
Would like to speak case management/social work about drug use resources
Anticipated Discharge: 24 - 48 hours
Original Note:
Today's Communication/Plan
-
Resume IV Lasix.
Transition to oral Lasix in the a.m. tomorrow and plan for discharge tomorrow.
Discontinue antibiotics.
Assessment / Plan
Assessment / Plan
Jbkiusriso-45-myyv-old male with PMHx significant for type 2 diabetes mellitus, chronic transaminitis, hypertension, hyperlipidemia, chronic back pain and neuropathy s/p microdiscectomy, prior opiate use, nephrolithiasis presents to the [facility]
ER for evaluation of SOB-diagnosed with acute hypoxemic respiratory insufficiency and acute heart failure.
Plan-
Acute hypoxic respiratory failure-
Patient was initially hypotensive and on oxygen flow upon arrival.
Suspected secondary to acute heart failure with HFrEF.
Suspected pneumonia, chest x-ray suspicious for pneumonia, CT chest obtained and with suspected upper lobe pneumonia.
Procalcitonin negative
Hence discontinue antibiotics. Day 5 of ceftriaxone and azithromycin.
Streptococcus, Legionella negative.
Acute heart failure -
HFrEF as evidenced by echocardiogram-EF of 35% with global hypokinesis and grade 3 diastolic dysfunction.
IV diuresis with Lasix 20 twice daily. Holding parameters for Lasix for systolic blood pressure less than 100.
Lasix held yesterday.
Resume IV Lasix today per cardiology.
Transition to oral Lasix tomorrow.
Patient is on guideline directed medical therapy currently-metoprolol, Farxiga
Stable for discharge when cleared by cardiology.
Monitor I's and O's, monitor renal function, weights.
Troponin elevation-
Troponin peaked to 0.153 and then trended down.
Likely nonmyocardial injury versus NSTEMI.
Currently patient on baby aspirin.
Lipid profile within normal limits.
Cardiology plans to do an ischemic evaluation on outpatient basis.
Chronic transaminitis-
Likely secondary to congestive hepatopathy.
Liver function improving with diuresis.
Hepatitis panel pending. Recommend evaluation for PERSAUD on outpatient.
Type 2 diabetes mellitus
Uncontrolled, HbA1c at 10.8
Adjusted patient's insulin to basal bolus regimen.
At home patient is on 70/30 twice a day regimen, not optimally managed.
Hypertension-
Continue current medications with holding parameters.
Patient agreeable to warm handoff resources. Case management consult placed.
Insomnia-patient on Benadryl continue.
DVT prophylaxis-Lovenox.
CODE STATUS-full code.
Hold off on ischemic testing as there is concern for compliance and high risk of in-stent thrombosis if found to have obstructive disease as he is not unlikely to be be compliant with medications and will be lost to follow-up based on cardiology.
However we will provide him with outpatient follow-up and if he does follow-up on a regular basis at that time they would consider doing an ischemic eval which would consist of LHC.
Data reviewed-
Echo-
CONCLUSIONS
Normal LV size with moderately reduced systolic function.
LVEF is approximately 35% by visual estimation.
Global diffuse hypokinesis.
Stage III diastolic dysfunction suggestive of restrictive filling pattern and
increased filling pressures.
Normal right ventricular size and function.
Mild to moderate mitral regurgitation.
Mild aortic regurgitation.
Mild to moderate tricuspid regurgitation.
Estimated pulmonary artery pressure of 48 mmHg. Assuming a right atrial
pressure of 3 mmHg.
Small pericardial effusion. Pleural effusion present.
No prior study available for comparison.
Chest CT-
IMPRESSION:
No evidence of acute pulmonary embolism.
Pulmonary edema with moderate bilateral pleural effusions. Suspected left upper lobe pneumonia.
Cardiomegaly with coronary artery calcifications.
Anticipated Discharge: Within 24 hours
Subjective/Interval History
-
Date of Service: January 21, 2024
No events overnight, patient reports cough but per nursing they did not notice patient coughing.
Objective Data
-
Labs:
Laboratory Results
01/21/24
07:33
WBC 9.7
Hgb 16.6
Hct 46.0
Plt Count 260
Sodium 133 L
Potassium 4.3
Chloride 99
Carbon Dioxide 26
BUN 25 H
Creatinine 0.6 L
Glucose 155 H
Calcium 9.2
Total Bilirubin 0.6
AST 71 H
ALT 67 H
Alkaline Phosphatase 128 H
Vital Signs:
Vital Signs
Temp Pulse Resp BP Pulse Ox
97.5 F 80 18 94/61 91
01/21/24 11:00 01/21/24 11:00 01/21/24 11:00 01/21/24 11:00 01/21/24 11:00
I&O
01/20/24 01/21/24 01/22/24
06:59 06:59 06:59
Intake Total 600 / 600 960 / 960
Balance 600 / 600 960 / 960
Review of Systems
-
History Source: Patient
Constitutional: Reports No Symptoms
Respiratory: Reports Cough (Improving.) and Trouble Breathing ( improving.)
Cardiac: Reports No Symptoms
Abdomen/GI: Reports No Symptoms
Genitourinary: Reports No Symptoms
Musculoskeletal: Reports No Symptoms
Neuro: Reports No Symptoms
Physical Exam
-
General: No Apparent Distress and Comfortable
HEENT: Normocephalic, Atraumatic, Moist Mucous Membranes and PERRLA
Respiratory: Clear to Auscultation; Negative Wheezes, Rales, Rhonchi or Crackles
Cardiac: Regular Rhythm and S1/S2; Negative Murmur, Rub, JVD, HJR or Gallop
GI: Soft, Nontender, Nondistended and Normal Bowel Sounds
Musculoskeletal: No Clubbing, No Cyanosis and No Edema
Skin: Warm
Neuro: AO x 3
Psych: Calm
[2024-01-21 15:00] VITALS: BP 83/65
[2024-01-21 15:12] LABS: Glucose - Point of Care 147 mg/dl (70-99)
[2024-01-21] MEDS: NOVOLOG FLEXPEN-MODERATE RESISTANCE SC (15:47)
[2024-01-21] MEDS: LIPITOR 40 MG PO (17:27)
[2024-01-21] MEDS: LOVENOX 40 MG SC (17:27)
[2024-01-21 19:01] VITALS: BP 101/62
[2024-01-21] MEDS: STERILE WATER FOR INJECTION 10 ML IV (20:43)
[2024-01-21] MEDS: ROCEPHIN 1000 MG IV (20:43)
[2024-01-21] MEDS: BENADRYL 75 MG PO (20:44)
[2024-01-21] MEDS: TYLENOL 650 MG PO (20:44)
[2024-01-21] MEDS: TOPROL XL PO (20:45)
[2024-01-21 21:29] LABS: Glucose - Point of Care 224 mg/dl (70-99)
[2024-01-21 22:34] VITALS: BP 98/59
[2024-01-21] MEDS: ZITHROMAX INFUSION 250 IV (22:35)
[2024-01-21] MEDS: LANTUS 0.09 UNITS SC (22:35)
[2024-01-22 02:52] VITALS: BP 99/62
[2024-01-22 06:00] VITALS: BMI 20.7
[2024-01-22 06:45] LABS: % Eosinophils 4.5 % (0-6); % Immature Granulocytes 0.8 % (0-0.5); % Lymphocytes 26.4 % (20.5-51.1); % Monocytes 11.5 % (1.7-9.3); % Neutrophils 55.8 % (42.2-75.2); Absolute Basophils 0.1 10^3/uL (0-0.2); Absolute Eosinophils 0.4 10^3/uL (0-0.7); Absolute Immature Granulocytes 0.1 10^3/uL (0-0.05); Absolute Lymphocytes 2.5 10^3/uL (1.2-3.4); Absolute Monocytes 1.1 10^3/uL (0.1-0.6); Absolute Neutrophils 5.3 10^3/uL (1.4-6.5); Hematocrit 46.2 % (39.0-52.0); Hemoglobin 16.5 g/dL (13.0-18.0); Mean Corp Hgb Conc. 35.7 g/dL (33.0-37.0); Mean Corpuscular Hgb 29.7 pg (27.0-31.0); Mean Corpuscular Volume 83.1 fL (80.0-94.0); Mean Platelet Volume 9.3 fL (7.4-10.4); Nucleated Red Blood Cells % 0 % (-); Platelet Count 256 10^3/uL (130-400); Red Blood Cell Count 5.56 10^6/uL (4.70-6.10); Red Cell Dist. Width 12.5 % (11.5-14.5); White Blood Cell Count 9.6 10^3/uL (4.8-10.8)
[2024-01-22 07:08] LABS: ALT (SGPT) 69 U/L (0-50); AST (SGOT) 77 U/L (17-59); Albumin 3.5 g/dl (3.5-5.0); Alkaline Phosphatase 114 U/L (38-126); Blood Urea Nitrogen 28 mg/dl (9-20); Carbon Dioxide 23 mmol/L (22-30); Chloride 102 mmol/L (98-107); Estimated Creatinine Clearance 101 ml/min; Glucose 145 mg/dl (70-99); Potassium 4.4 mmol/L (3.5-5.1); Sodium 133 mmol/L (135-145); Total Bilirubin 0.7 mg/dl (0.2-1.3); Total Protein 6.3 g/dl (6.3-8.2); eGFR > 60.00
[2024-01-22 07:14] LABS: Glucose - Point of Care 149 mg/dl (70-99)
[2024-01-22 07:25] VITALS: BP 100/61
[2024-01-22] MEDS: TOPROL XL 25 MG PO (07:55)
[2024-01-22] MEDS: ASPIR LOW (ENTERIC COATED) 81 MG PO (07:55)
[2024-01-22] MEDS: FARXIGA 10 MG PO (07:55)
[2024-01-22] MEDS: NOVOLOG FLEXPEN-MODERATE RESISTANCE SC (07:57)
[2024-01-22] MEDS: NOVOLOG FLEXPEN 5 UNITS SC ×2 (07:58→12:06)
[2024-01-22] MEDS: LASIX 20 MG PO (08:07)
--- NOTE | 2024-01-22 08:39 | W.PN.CD ---
Today's Communication / Plan
-
Respiratory status appears stable. Can transition to oral diuretic
continue metoprolol but will change to daily dosing considering blood pressures. A dose of metoprolol was held yesterday so he only received 1 dose.
Impression / Plan
-
BACKGROUND: 68M with uncontrolled type 2 diabetes mellitus, dyslipidemia, chronic back pain, prior hepatitis B, and former kidney stones who presented to the emergency department with a chief complaint of shortness of breath.
Acute hypoxic respiratory insufficiency
-This is likely in the setting of acute heart failure
-COVID-negative
Acute HFrEF TTE below
-Diuresis with furosemide 20 mg IV twice daily
GDMT:
-Farxiga 10 mg daily
- Metop XL 25 bid
-Arb/ ARNI limited by BP, will try and start valsartan if BP allows
- MRA as outpatienet
-Trend daily weight, I/O, and BMP with diuresis
-Transition to oral diuretic. Lasix 20 mg daily
Abnormal troponin, likely nonischemic myocardial injury in the setting of acute heart failure
-Chest pain-free
-Trend to peak
- ischemic eval as outpt
Type II DM, uncontrolled, Hgba1c 11/2023 17.1%
HLD, LDL 97, he should be on a high intensity statin, start atorvastatin 40mg
Subjective: Breathing improved
TTE: CONCLUSIONS
Normal LV size with moderately reduced systolic function.
LVEF is approximately 35% by visual estimation.
Global diffuse hypokinesis.
Stage III diastolic dysfunction suggestive of restrictive filling pattern and
increased filling pressures.
Normal right ventricular size and function.
Mild to moderate mitral regurgitation.
Mild aortic regurgitation.
Mild to moderate tricuspid regurgitation.
Estimated pulmonary artery pressure of 48 mmHg. Assuming a right atrial
pressure of 3 mmHg.
Small pericardial effusion. Pleural effusion present.
No prior study available for comparison.
Physical Exam
Vital Signs/Labs
Vital Signs
Temp Pulse Resp BP Pulse Ox
98.0 F 85 17 100/61 96
01/22/24 07:25 01/22/24 08:07 01/22/24 07:25 01/22/24 08:07 01/22/24 07:25
01/21/24 01/22/24 01/23/24
06:59 06:59 06:59
Actual Weight 61.263 kg 59.874 kg
01/22/24 06:20
01/22/24 06:20
Triglycerides 70 mg/dl (10-149) 01/19/24 04:01
LDL Cholesterol, Calc 97 mg/dl 01/19/24 04:01
VLDL Cholesterol, Calc 14 mg/dl (0-30) 01/19/24 04:01
HDL Cholesterol 48 mg/dl 01/19/24 04:01
01/18/24
18:51
Ald-M-Dilxvyjmjmi Pept 3330
LAB Results
01/19/24 01/19/24
09:45 15:48
Troponin I 0.134 H* 0.130 H*
Physical Exam
Constitutional: No acute distress
Cardiovascular: Rhythm & rate is regular (nO M/R/G)
GI: Soft, Non tender and Normal bowel sounds
Neuro/Psych: Alert
Data Reviewed
-
Date of Service: January 22, 2024
Medical Decision Making: Reviewed Test Results
X-Ray/CT/US/MRI/NUC/PET: Report Reviewed by me
Medical Tests (PFT, Pathology etc): Report Reviewed by me
Labs: Labs Reviewed by me
[2024-01-22 11:24] VITALS: BP 122/68
[2024-01-22 11:46] LABS: Glucose - Point of Care 245 mg/dl (70-99)
--- NOTE | 2024-01-22 11:47 | CM ---
Addendum entered by OMERO Louise 01/22/24 15:17:
Met with patient to discuss resources for cost of medications and housing, as well as VN. Patient stated that [facility] is acceptable but was not receptive to resources.
Original Note:
Reviewed chart, patient progressing well in therapy. Will return home when stable.
Plan: Case management will continue to follow and assist with discharge planning. Home when cleared for discharge.
[2024-01-22] MEDS: NOVOLOG FLEXPEN-MODERATE RESISTANCE 3 UNITS SC (12:04)
--- NOTE | 2024-01-22 12:33 | W.PN.HOSP.TC ---
Addendum entered and electronically signed by Jenniffer Miranda MD, Resident 01/22/24 14:56:
CDI enquiry - Pneumonia is a still a possible diagnosis. Transition to oral antibiotics.
Addendum entered and electronically signed by Deanna Oslen MD 01/22/24 14:01:
# acute hypoxic respiratory failure 2/2 Acute HFrEF (EF 35%), new diagnosis
# Congestive hepatopathy
# Troponin elevation 2/2 nonmyocardial injury
Off IV lasix, cont PO lasix 20 gm daily, monitor daily weight
Defer ischemic workup with card outpt
# Chronic transaminitis
Abd US unrevealing: No fatty liver, 6 mm echogenic lesion within the left hepatic lobe likely representing a benign angioma.
Hepatitis panel noted possible prior hepatitis A exposure (Hepatitis A total antibody positive, hepatitis A IgM antibody negative); and chronic hepatitis B infection (hepatitis B surface antigen reactive, hepatitis B surface antibody negative,
hepatitis B core total antibody reactive, hepatitis B core IgM antibody negative)
Recommend outpatient GI workup
Dispo: HH
Original Note:
Today's Communication/Plan
-
Transition to oral Lasix.
Toprol-XL once a day.
Continue home insulin medication regimen.
Transition to oral antibiotics with 1 day dosing
Give resources for primary care and and cardiology appointments
Case management consult for home visiting nurse, PT, OT
Plan for discharge.
Assessment / Plan
Assessment / Plan
Ujikedkwqt-72-qakv-old male with PMHx significant for type 2 diabetes mellitus, chronic transaminitis, hypertension, hyperlipidemia, chronic back pain and neuropathy s/p microdiscectomy, prior opiate use, nephrolithiasis presents to the [facility]
ER for evaluation of SOB-diagnosed with acute hypoxemic respiratory insufficiency and acute heart failure.
Plan-
Acute hypoxic respiratory failure-
Patient was initially hypotensive and on oxygen flow upon arrival.
Suspected secondary to acute heart failure with HFrEF.
Suspected pneumonia, chest x-ray suspicious for pneumonia, CT chest obtained and with suspected upper lobe pneumonia.
Procalcitonin negative
Hence discontinue antibiotics. Day 5 of ceftriaxone and azithromycin pending. Transition to oral antibiotics.
Streptococcus, Legionella negative.
Acute heart failure -
HFrEF as evidenced by echocardiogram-EF of 35% with global hypokinesis and grade 3 diastolic dysfunction.
On IV Lasix with 1 dose of IV Lasix held, transition to oral Lasix today. Change Toprol to once a day as his blood pressures are running soft.
Patient is on guideline directed medical therapy currently-metoprolol, Farxiga
Stable for discharge when cleared by cardiology.
Monitor I's and O's, monitor renal function, weights.
Troponin elevation-
Troponin peaked to 0.153 and then trended down.
Likely nonmyocardial injury versus NSTEMI.
Currently patient on baby aspirin.
Lipid profile within normal limits.
Cardiology plans to do an ischemic evaluation on outpatient basis.
Chronic transaminitis-
Likely secondary to congestive hepatopathy.
Liver function improving with diuresis.
Hepatitis panel pending. Recommend evaluation for PERSAUD on outpatient.
Type 2 diabetes mellitus
Uncontrolled, HbA1c at 10.8
Adjusted patient's insulin to basal bolus regimen.
At home patient is on 70/30 twice a day regimen, not optimally managed.
Hypertension-
Continue current medications with holding parameters.
Patient agreeable to warm handoff resources. Case management consult placed.
Insomnia-patient on Benadryl continue.
DVT prophylaxis-Lovenox.
CODE STATUS-full code.
Hold off on ischemic testing as there is concern for compliance and high risk of in-stent thrombosis if found to have obstructive disease as he is not unlikely to be be compliant with medications and will be lost to follow-up based on cardiology.
However we will provide him with outpatient follow-up and if he does follow-up on a regular basis at that time they would consider doing an ischemic eval which would consist of LHC.
Data reviewed-
Echo-
CONCLUSIONS
Normal LV size with moderately reduced systolic function.
LVEF is approximately 35% by visual estimation.
Global diffuse hypokinesis.
Stage III diastolic dysfunction suggestive of restrictive filling pattern and
increased filling pressures.
Normal right ventricular size and function.
Mild to moderate mitral regurgitation.
Mild aortic regurgitation.
Mild to moderate tricuspid regurgitation.
Estimated pulmonary artery pressure of 48 mmHg. Assuming a right atrial
pressure of 3 mmHg.
Small pericardial effusion. Pleural effusion present.
No prior study available for comparison.
Chest CT-
IMPRESSION:
No evidence of acute pulmonary embolism.
Pulmonary edema with moderate bilateral pleural effusions. Suspected left upper lobe pneumonia.
Cardiomegaly with coronary artery calcifications.
Anticipated Discharge: Today
Subjective/Interval History
-
Date of Service: January 22, 2024
Patient complains of mild shortness of breath, cough. No events overnight
Objective Data
-
Labs:
Laboratory Results
01/22/24
06:20
WBC 9.6
Hgb 16.5
Hct 46.2
Plt Count 256
Sodium 133 L
Potassium 4.4
Chloride 102
Carbon Dioxide 23
BUN 28 H
Creatinine 0.6 L
Glucose 145 H
Calcium 9.0
Total Bilirubin 0.7
AST 77 H
ALT 69 H
Alkaline Phosphatase 114
Vital Signs:
Vital Signs
Temp Pulse Resp BP Pulse Ox
97.8 F 98 17 122/68 95
01/22/24 11:24 01/22/24 11:24 01/22/24 11:24 01/22/24 11:24 01/22/24 11:24
I&O
01/21/24 01/22/24 01/23/24
06:59 06:59 06:59
Intake Total 960 / 960 800 / 800
Balance 960 / 960 800 / 800
Review of Systems
-
History Source: Patient
Constitutional: Reports No Symptoms
Respiratory: Reports Cough and Trouble Breathing (Improved)
Cardiac: Reports No Symptoms
Abdomen/GI: Reports No Symptoms
Genitourinary: Reports No Symptoms
Musculoskeletal: Reports No Symptoms
Neuro: Reports No Symptoms
Endocrine: Reports No Symptoms
Hematologic / Lymphatic: Reports No Symptoms
Physical Exam
-
General: No Apparent Distress and Comfortable
HEENT: Normocephalic, Atraumatic and Moist Mucous Membranes
Respiratory: Clear to Auscultation (In bilateral upper lobes) and Crackles (Mild in bilateral lower lobes. Also diminished breath sounds in bilateral lower lobes.); Negative Wheezes, Rales or Rhonchi
Cardiac: Regular Rhythm and S1/S2; Negative Murmur, Rub, JVD, HJR or Gallop
GI: Soft, Nontender, Nondistended and Normal Bowel Sounds
Musculoskeletal: No Clubbing, No Cyanosis and No Edema
Skin: Warm
Neuro: AO x 3
Psych: Calm
Data Reviewed
-
CT Scan: Report Reviewed by me
Ultrasound: Report Reviewed by me
Medical Tests (Nuc Med, Echo etc): Report Reviewed by me
Labs: Labs Reviewed by me and Discussed with Physician
--- NOTE | 2024-01-22 13:27 | W.DCSUMMARY ---
Discharge Summary
Discharge Data
Date of Admission: 01/18/24
Date of Discharge: 01/22/24
-
Pending Results: No
Hospital Course
Admission Diagnosis -
Acute pneumonia
New onset acute decompensated heart failure-HFrEF
Elevated troponins-questionable ischemia.
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
Type 2 diabetes [id number]
Chronic transaminitis secondary to chronic hepatitis B.
Prior opiate use
Hypertension
Hyperlipidemia
Chronic back pain and neuropathy s/p microdiscectomy.
Hospital course-During his 4-day hospital course he was diagnosed with acute heart failure and he developed hypoxemic respiratory insufficiency secondary to heart failure. He was also found to have elevated troponins, and pneumonia during his
initial workup. An echocardiogram was obtained which evidence it for HFrEF with global hypokinesis. Patient was started on GDMT, and diuresis along with broad-spectrum antibiotic coverage-ceftriaxone and azithromycin. His shortness of breath
improved with IV diuresis, and he is eventually switched to oral Lasix. During his admission he was also found to have a HbA1c of 10.8, and he was started on a basal bolus insulin regimen. Overall patient condition dramatically improved over the
last 4 days. Although global hypokinesis and elevated troponins were not an ischemic evaluation workup there is some concern for high risk in-stent thrombosis in the setting of chronic noncompliance if the patient is found to have obstructive
disease. He is at high risk for loss for follow-up. However warm consult hand of and case management consult was placed for visiting home nurses. And he was discharged home on oral azithromycin and cefdinir with 1 more day of supply, and optimal
medical management for heart.
Reviewed hepatitis B status with the patient and advised him to follow-up with gastroenterology as well.
Data reviewed during hospital admission-
Abdominal ultrasound-01/22/2024
Impression
1. No objective sonographic evidence of fatty infiltration of liver. No fatty infiltration was seen on prior noncontrast CT abdomen and pelvis dated 04/01/2023.
2. 6 mm echogenic lesion within the left hepatic lobe, likely representing a benign angioma.
3. No evidence of cholelithiasis or acute cholecystitis.
4. Pancreas was not well visualized.
5. Bilateral pleural effusions.
CT chest-01/19/2024.
IMPRESSION:
No evidence of acute pulmonary embolism.
Pulmonary edema with moderate bilateral pleural effusions. Suspected left upper lobe pneumonia.
Cardiomegaly with coronary artery calcifications.
Echocardiogram-01/19/2024-
conclusions:
Normal LV size with moderately reduced systolic function.
LVEF is approximately 35% by visual estimation.
Global diffuse hypokinesis.
Stage III diastolic dysfunction suggestive of restrictive filling pattern and
increased filling pressures.
Normal right ventricular size and function.
Mild to moderate mitral regurgitation.
Mild aortic regurgitation.
Mild to moderate tricuspid regurgitation.
Estimated pulmonary artery pressure of 48 mmHg. Assuming a right atrial
pressure of 3 mmHg.
Small pericardial effusion. Pleural effusion present.
No prior study available for comparison.
Discharge Plan
-
Patient Disposition: Home (Routine Discharge)
Discharge Diagnosis/Procedures: Acute exacerbation of CHF.
Condition: Fair
Diet: 2 Gram Sodium and Restrict fluids to 64 oz
Activity: As tolerated
Driving Restrictions: As prior to admission
Bathing Restrictions: None
Other Services: VN
Activity Restrictions/Additional Instructions:
Follow up with GI outpatient for concern of chronic hepatitis B infection
Referrals:
Sunday Odom MD [Active] - 02/03/24 1:00 am
UNKNOWN - PT DOES,NOT KNOW [Family Provider] -
Additional Discharge Medication Instructions: If you gain more than 5 pounds in 1- 2 weeks, please call your PCP/ rejoiner.
Prescriptions:
New
dapagliflozin propanediol 10 mg Tablet
10 mg PO DAILY 30 Days Qty: 30 2RF
furosemide 40 mg tablet
20 mg PO DAILY 30 Days Qty: 30 2RF
atorvastatin 40 mg Tablet
40 mg PO QPM 30 Days Qty: 30 0RF
azithromycin 250 mg Tablet
500 mg PO HS 2 Days Qty: 2 0RF
metoprolol succinate 25 mg Tablet Extended Release 24 Hr
25 mg PO DAILY 30 Days Qty: 30 0RF
cefdinir 300 mg capsule
300 mg PO BID 2 Days Qty: 4 0RF
Continued
diphenhydramine HCl [Benadryl] 25 mg Capsule
75 mg PO HS
pseudoephedrine-ibuprofen 30-200 mg Tablet
2 tab PO DAILYPRN PRN (Reason: cold symptoms)
guaifenesin 100 mg/5 mL Liquid
200 mg PO Q4HPRN PRN (Reason: cough)
[id number]-acetaminophen Capsule
2 cap PO HSPRN PRN (Reason: cold symptoms)
Humulin 70/30 U-100 KwikPen 100 unit/mL (70-30) insulin pen
20 unit SC BID Qty: 15 0RF
Discharge Orders:
Discharge Patient (As Directed); Ordered 01/22/24
Ordered By: Jenniffer Miranda
Discharge Date and Time
Print Language: WOLOF
--- NOTE | 2024-01-22 14:06 | PN.CDI ---
CDI
- -
CDI:
Physician Documentation Request
Admit Date: 01/18/24 21:39
Dear Doctor Ruben,
Clinical Indicators:
Patient admitted with acute HFrEF.
01/21 PN, 'Suspected pneumonia, chest x-ray suspicious for pneumonia, CT chest obtained and with suspected upper lobe pneumonia. Procalcitonin negative Hence discontinue antibiotics. Day 5 of ceftriaxone and azithromycin pending. Transition to
oral antibiotics.'
Please clarify the following:
Pneumonia was present on admission and is still being monitored, evaluated or treated
Pneumonia was ruled out
Pneumonia is still a likely, suspected, probable diagnosis
Other, (please specify)
Use of terms such as suspected, likely, concern for, or probable (associated with a specific diagnosis that is being evaluated, monitored, or treated as if it exists) are acceptable and can be coded in the inpatient setting, when documented at the
time of discharge.
Thank you,
Sanna Alexandre RN BSN
CDI Specialist
available via tiger text
Please use your independent medical judgment in providing your response.
[2024-01-22 15:05] VITALS: BP 92/53
--- NOTE | 2024-01-22 15:39 | VNURNOTE ---
Chart reviewed. Pt left before [facility] liaison could see him. Call placed to patient, no answer, unable to leave voicemail. Reviewed that patient is not current with PCP, was given [facility] info. This author called cardiology and left message
requesting if willing to sign homecare orders until active w/PCP. Awaiting call back.
--- NOTE | 2024-01-23 10:17 | VNURNOTE ---
Received call back from cardiology- they will not sign home care orders. Called patient again at number listed, no answer, no voicemail set up. Called primary contact listed- Janette, left message.
[2024-01-23 16:10] LABS: HBsAg Confirmation Positive (Non Confirmed)
== END 2024-01-22 15:10 | disposition home or self-care (01) | DRG 193 ==
LOC: 3 WEST ACU 21:39
PROVIDERS: Clinical Nurse Specialist Family Health; Internal Medicine Gastroenterology; Physician Assistant; Student in an Organized Health Care Education/Training Program; ADMITTING PHYSICIAN Hospitalist; ATTENDING PHYSICIAN Internal Medicine; CONSULT PHYSICIAN Internal Medicine Cardiovascular Disease; EMERGENCY PHYSICIAN Emergency Medicine
DX: J18.9 Pneumonia, unspecified organism (principal); I50.21 Acute systolic (congestive) heart failure; J96.01 Acute respiratory failure with hypoxia; B18.1 Chronic viral hepatitis B without delta-agent; I5A Non-ischemic myocardial injury (non-traumatic); I11.0 Hypertensive heart disease with heart failure; E11.42 Type 2 diabetes mellitus with diabetic polyneuropathy; I25.10 Atherosclerotic heart disease of native coronary artery without angina pectoris; I08.1 Rheumatic disorders of both mitral and tricuspid valves; F17.210 Nicotine dependence, cigarettes, uncomplicated; E11.65 Type 2 diabetes mellitus with hyperglycemia; Z79.82 Long term (current) use of aspirin; Z79.4 Long term (current) use of insulin
CPT/HCPCS: 71046; 71275; 76700; 80053; 80061; 82962; 83036; 83880; 84145; 84484; 85025; 86704; 86705; 86706; 86708; 86709; 86803; 87040; 87340; 87341; 87449; 87811; 87899; 93005; 93306; 96365; 96375; 97162; 97166; 99285; Q9950; Q9967

== ENCOUNTER 2024-04-04 15:03 | Emergency (ER) | payer MEDICARE, OTHER, SELFPAY ==
[2024-04-04 15:07] VITALS: BP 131/86
[2024-04-04 15:11] LABS: Glucose - Point of Care 176 mg/dl (70-99)
--- NOTE | 2024-04-04 15:47 | ED.GENMED ---
History of Present Illness
General
Chief Complaint: Prescription Refill
Source: patient
Time Seen by Provider: 04/04/24 15:27
History of Present Illness
History of Present Illness:
69yoM with a history of CHF, hypertension, hyperlipidemia, insulin dependent type 2 diabetes, chronic back pain, and hepatitis B presenting for evaluation of multiple complaints. Patient was admitted about 2 months ago for community-acquired
pneumonia. He has been having ongoing left-sided chest pain since that time. The pain has not changed and he denies any symptoms. He describes the pain as feeling like a 'string' in his chest. Nothing seems to make the pain better or worse. He
rides his bike frequently and denies any pain with exertion. He also reports a cough and mild dyspnea. Patient is also requesting medication refills of his Humulin KwikPen, metoprolol, atorvastatin, and furosemide. He does not currently have a
PCP and has no scheduled outpatient follow-up.
Past History
Past History
ED Past Medical History: Asthma, HTN, Hypercholesterolemia, IDDM and Other (Kidney stones, Chronic back pain)
ED Past Surgical History: Other (Back surgery with microdiscectomy, kidney stone surgery x3, in removal of a right lymph node)
Social History
Tobacco: Smoker
Alcohol: None
Drug: None
Personal: Single
Living: alone
Employment: Disabled
Family History
Family History: Other (Noncontributory)
Phy Exam
General Physical Exam
General Presentation: well appearing and no apparent distress
General age: appears stated age
General Skin: warm and dry
General Habitus: normal
General Mental: alert
ENT Exam
ENT Exam: normocephalic
Cardiovascular Exam
Cardiovascular Exam: regular rate/rhythm
Pulmonary Exam
Pulmonary Exam: lungs clear, no respiratory distress, no rales, no crackles and no wheezing
Bruno Coma Scale
Eye Opening: Spontaneous
Verbal Response: Oriented
Motor Response: Obeys Commands
GCS Total Score: 15
Skin Exam
Skin Exam: normal color and warm/dry
Psychiatric Exam
Psychiatric Exam: normal mood/affect
Course
Orders/Labs/Results
Orders:
Orders
04/04/24 15:11
EKG [Electrocardiogram (*1)] Urgent
Reason for Study: Chest Pain
EKG- Treatment ONCE
04/04/24 15:46
Case Management Consult ONCE
Case Management Consult: Discharge Planning
04/04/24 15:47
CR Chest - 2 Views Urgent
Comment:
Reason For Exam: CP
04/04/24 16:14
Complete Blood Count/With Diff Urgent
Comprehensive Metabolic Panel Urgent
Troponin I Urgent
Abnormal Lab Results
04/04/24 04/04/24
15:10 16:14
MCV 79.6 L fL
(80.0-94.0)
Absolute Monos (auto) 0.8 H 10^3/uL
(0.1-0.6)
BUN 23 H mg/dl
(9-20)
Glucose 177 H mg/dl
(70-99)
POC Glucose 176 H mg/dl
(70-99)
04/04/24 16:14
04/04/24 16:14
Vital Signs
Initial and Last Documented VS:
Initial Vital Signs
Temp Pulse Resp BP Pulse Ox
97.5 F 113 18 131/86 97
04/04/24 15:07 04/04/24 15:07 04/04/24 15:07 04/04/24 15:07 04/04/24 15:07
Last Documented Vital Signs
Temp Pulse Resp BP Pulse Ox
97.5 F 113 18 131/86 97
04/04/24 15:07 04/04/24 15:07 04/04/24 15:07 04/04/24 15:07 04/04/24 15:07
MDM/Problems Addressed
Differential Diagnosis Includes:
69yoM here requesting medication refills. He is also c/o L sided chest pain that has been constant x 2 months since having pneumonia. Triage note documents diaphoresis. This was not appreciated on my examination. HR 113. Remainder of vitals stable.
He is well appearing in no distress. Exam is reassuring. Differential diagnosis includes but is not limited to: ACS, pneumonia, musculoskeletal, nonspecific chest pain
Initial ED plan: Check cardiac labs, EKG, and CXR. Will consult case management to assist with outpatient resources and to establish patient with a PCP.
*EKG
Interpreted by ED Provider?: Yes
EKG Intrepretation Date: 04/04/24
Heart Rate: 98
Rate: normal
Rhythm: sinus
[place]: normal axis
Interval: normal interval
QRS Pattern: normal QRS
Ischemia: other (Nonspecific T wave abnormality)
*Critical Care Note
Total Time (30-74mins, 75-104mins- exclusive of procedures): Not Applicable
Update Note
Update Note:
EKG shows NSR with nonspecific T wave changes. Troponin WNL. Remainder of labs unremarkable. CXR is clear. Informed by nursing staff that patient eloped prior to reassessment. I was unable to review test results with patient or provide him with
discharge papers. I did send the refills to his pharmacy that he requested.
ED Attending Note
-
Portions of this chart may have been created with voice recognition software.� Occasional wrong word or��sound alike� substitutions may have occurred due to the inherent limitations of voice recognition software.
Discharge Plan
Departure
Patient Disposition: Elopement
Date of Disposition: 04/04/24
Time of Disposition: 17:25
Patient with high blood pressure during this ER visit?: No
Discharge Problem:
Chest pain, Prescription refill
Prescriptions:
New
Humulin 70/30 U-100 KwikPen 100 unit/mL (70-30) insulin pen
20 unit SC BID Qty: 15 0RF
metoprolol succinate 25 mg tablet extended release 24 hr
25 mg PO DAILY Qty: 30 0RF
atorvastatin 40 mg tablet
40 mg PO HS Qty: 30 0RF
furosemide 20 mg tablet
20 mg PO DAILY Qty: 30 0RF
(DME) pen needle, diabetic [BD Ultra-Fine Layla Pen Needle] 32 gauge x ' needle
See Rx Instructions .Route Qty: 100 0RF
Rx Instructions:
As directed
No Action
diphenhydramine HCl [Benadryl] 25 mg Capsule
75 mg PO HS
pseudoephedrine-ibuprofen 30-200 mg Tablet
2 tab PO DAILYPRN PRN (Reason: cold symptoms)
guaifenesin 100 mg/5 mL Liquid
200 mg PO Q4HPRN PRN (Reason: cough)
[id number]-UI-acetaminophen Capsule
2 cap PO HSPRN PRN (Reason: cold symptoms)
dapagliflozin propanediol 10 mg Tablet
10 mg PO DAILY 30 Days Qty: 30 2RF
furosemide 40 mg tablet
20 mg PO DAILY 30 Days Qty: 30 2RF
atorvastatin 40 mg Tablet
40 mg PO QPM 30 Days Qty: 30 0RF
azithromycin 250 mg Tablet
500 mg PO HS 2 Days Qty: 2 0RF
metoprolol succinate 25 mg Tablet Extended Release 24 Hr
25 mg PO DAILY 30 Days Qty: 30 0RF
cefdinir 300 mg capsule
300 mg PO BID 2 Days Qty: 4 0RF
Humulin 70/30 U-100 KwikPen 100 unit/mL (70-30) insulin pen
20 unit SC BID Qty: 15 0RF
Referrals:
[facility] [Provider Group]
[facility]Outside[facility]
NONE,* [Family Provider] -
Interventions
Interventions:
*Risk Screen - Suicide Last Done: 04/04/24 18:06
*General Assessment Last Done: 04/04/24 18:06
*Neglect/Abuse Screening Last Done: 04/04/24 18:06
*Nursing Disposition Last Done: 04/04/24 18:06
ED- Cardiac Assessment Last Done: 04/04/24 15:29
Discharge Date and Time
Discharge Date/Time: 04/04/24 18:08
Print Language: ROMANSH
[2024-04-04 16:21] LABS: % Basophils 0.8 % (0-2); % Eosinophils 1.5 % (0-6); % Immature Granulocytes 0.4 % (0-0.5); % Monocytes 9.3 % (1.7-9.3); Absolute Basophils 0.1 10^3/uL (0-0.2); Absolute Eosinophils 0.1 10^3/uL (0-0.7); Absolute Lymphocytes 2.1 10^3/uL (1.2-3.4); Absolute Monocytes 0.8 10^3/uL (0.1-0.6); Absolute Neutrophils 5.3 10^3/uL (1.4-6.5); Hematocrit 43.2 % (39.0-52.0); Hemoglobin 15.3 g/dL (13.0-18.0); Mean Corp Hgb Conc. 35.4 g/dL (33.0-37.0); Mean Corpuscular Hgb 28.2 pg (27.0-31.0); Mean Corpuscular Volume 79.6 fL (80.0-94.0); Mean Platelet Volume 9.8 fL (7.4-10.4); Nucleated Red Blood Cells % 0 % (-); Platelet Count 214 10^3/uL (130-400); Red Blood Cell Count 5.43 10^6/uL (4.70-6.10); Red Cell Dist. Width 12.7 % (11.5-14.5); White Blood Cell Count 8.4 10^3/uL (4.8-10.8)
[2024-04-04 16:36] LABS: ALT (SGPT) 42 U/L (0-50); AST (SGOT) 51 U/L (17-59); Albumin 4.5 g/dl (3.5-5.0); Alkaline Phosphatase 117 U/L (38-126); Blood Urea Nitrogen 23 mg/dl (9-20); Calcium 9.7 mg/dl (8.4-10.2); Carbon Dioxide 29 mmol/L (22-30); Chloride 98 mmol/L (98-107); Glucose 177 mg/dl (70-99); Potassium 4.1 mmol/L (3.5-5.1); Sodium 141 mmol/L (135-145); Total Bilirubin 0.9 mg/dl (0.2-1.3); Total Protein 7.7 g/dl (6.3-8.2); eGFR > 60.00
[2024-04-04 16:47] LABS: Troponin I 0.012 ng/ml
--- NOTE | 2024-04-04 17:17 | CM ---
Addendum entered by Rohini Yoo 04/04/24 18:29:
Finally got ahold of patient to let him know his medication refill rx's were sent to his pharmacy. He verbalized understanding. Reiterated that he needs to follow up with physician's office tomorrow. He verbalized understanding.
Addendum entered by Rohini Yoo 04/04/24 17:40:
CM attempted to call patient's cellphone to let him know his meds would be sent to his pharmacy. He left before he could be properly discharged. CM called patient's phone several times. He doesn't not have a VM box set up, so unable to leave a
message. He finally answered and the phone call ended abruptly. Either patient's phone or he blocked CM's number because it now continues to go to the message, 'Sorry, but the person you are trying to call has not set up a VM box yet. Please
try again later'.
Addendum entered by Rohini Yoo 04/04/24 17:33:
Patient declined [facility] referral. He shared that he has had them in his home before and per patient, 'They didn't do anything for me. They said yeah, yeah, yeah and then kept calling me and asking: 'did you call this place, did you call
that place?' They were a waste of time'.
Original Note:
CM reviewed chart. CM consult placed because patient needs refills on his meds and does not have a PCP. JONA introduced self and role. Foster confirmed he has not seen his PCP, Dr. Ruby, since 2019. He can't not remember Dr. Pretty's first name or where
they are located. He asked to have a new PCP because, per patient, 'He's (Dr. Ruby) is the reason why all this stuff started happening'.
JONA printed out a list of PCPs who were within network of [address] Patient started to talk about how he needed a nail technician, top ironer, pain management, 'diabetes doctor' and a dentist.
JONA educated patient that this is why it was important to establish having a PCP; they could send referrals to several of these specialties. CM also stated that patient should have a PCP instead of visiting the ER for refills of his medications.
CM called [facility] at [address] [place] [address] Paul Garcia. CM gave name and phone number and gave name, birthdate and phone number of patient as well. CM educated patient how important it is that he follows up
with a phone call tomorrow as well. He was given all of Dr. Garcia's office information. Patient verbalized understanding and agreeable.
Above shared with attending physician. Attending RAVIN stated she will send new scripts of patient's meds to his pharmacy.
== END 2024-04-04 18:08 | disposition left against medical advice (07) ==
LOC: EMR 15:03
PROVIDERS: Physician Assistant; EMERGENCY PHYSICIAN Emergency Medicine
DX: R07.89 Other chest pain (principal); Z76.0 Encounter for issue of repeat prescription; I11.0 Hypertensive heart disease with heart failure; I50.9 Heart failure, unspecified; E78.00 Pure hypercholesterolemia, unspecified; E11.9 Type 2 diabetes mellitus without complications; J45.909 Unspecified asthma, uncomplicated; F17.200 Nicotine dependence, unspecified, uncomplicated; Z87.442 Personal history of urinary calculi
CPT/HCPCS: 99283; 71046; 80053; 82962; 84484; 85025; 93005

== ENCOUNTER 2024-06-16 13:17 | Emergency (ER) | payer MEDICARE, OTHER, SELFPAY ==
[2024-06-16 13:19] VITALS: BP 149/85
[2024-06-16 13:24] LABS: Glucose - Point of Care > 600 mg/dl (70-99)
--- NOTE | 2024-06-16 14:49 | ED.GENMED ---
History of Present Illness
General
Chief Complaint: Prescription Refill
Source: patient
Exam Limitations: none
Time Seen by Provider: 06/16/24 14:37
Nursing documentation reviewed up to this point in time: agreed with
History of Present Illness
History of Present Illness:
Patient with history of hypertension, hypercholesterolemia, and insulin-dependent diabetes, presents to ED requesting prescriptions for his medications, as he currently does not have a primary care physician. Denies fever or chills. Patient states
that he has not taken any of his medications over the past 2 weeks, as he ran out of them. Denies nausea or vomiting. Denies chest pain or shortness of breath. Denies leg pain or swelling. Denies recent illness. Patient states that he does have
an appointment with primary care physician sometime next month, but has lost information about where he needs to go.
Past History
Past History
ED Past Medical History: Asthma, HTN, Hypercholesterolemia, IDDM and Other (Kidney stones, Chronic back pain)
ED Past Surgical History: Other (Back surgery with microdiscectomy, kidney stone surgery x3, in removal of a right lymph node)
Social History
Tobacco: Smoker
Alcohol: None
Drug: None
Personal: Single
Living: alone
Employment: Disabled
Family History
Family History: Other (Noncontributory)
Review of Systems
Review of Systems
Allergies reviewed?: Yes
All Other Systems: ROS reviewed and negative except as documented in HPI and ROS
Constitutional: Reports no symptoms
EENT: Reports no symptoms
Respiratory: Reports no symptoms; Denies cough or trouble breathing
Cardiac: Reports no symptoms; Denies chest pain
ABD/GI: Reports no symptoms; Denies nausea, vomiting or diarrhea
: Reports no symptoms
Musculoskeletal: Reports no symptoms
Skin: Reports no symptoms
Neurological: Reports no symptoms
Phy Exam
Physical Exam
Physical Exam:
Physical Exam
General: no apparent distress, not acutely ill
Neck: supple. no meningeal signs. normal psoterior pharynx
Heart: s1/s2 regular rate and rhythm, no murmur. equal radial pulses.
Lungs: no acute respiratory distress. clear bilaterally
Abdomen: normal bowel sounds. not tender. no CVAT
Neuro: alert and oriented. no focal neurological deficits
Skin: no rash
Psychiatric: well kept. interactive and cooperative
Extremities: no edema. no calf tenderness. negative homans. good distal pulses
Course
Orders/Labs/Results
Orders:
Orders
06/16/24 14:47
0.9% Sodium Chloride 1000 ml [Nss] 1,000 ml IV BOLUS
06/16/24 14:57
Acetone [B-Hydroxybutyrate] Urgent
Alcohol Urgent
Complete Blood Count/With Diff Urgent
Comprehensive Metabolic Panel Urgent
Magnesium Urgent
NT-proBNP Urgent
Venous Blood Gas Urgent
%Oxygen/Room Air: 97
06/16/24 15:30
Insulin Human Regular [Novolin R] 10 units IV NOW STA
06/16/24 16:33
Urinalysis Reflex To Culture Urgent
Date Specimen was Collected: 06/16/24
Time Specimen was Collected: 16:28
Abnormal Lab Results
06/16/24 06/16/24 06/16/24
13:23 14:45 14:57
MCV 78.0 L fL
(80.0-94.0)
VBG pH 7.49 H
(7.32-7.43)
VBG pCO2 34 L mmHg
(35-48)
VBG pO2 127 H mmHg
(30-50)
Sodium 128 L mmol/L
(135-145)
Chloride 92 L mmol/L
(98-107)
Glucose 456 H* mg/dl
(70-99)
Alkaline Phosphatase 205 H U/L
(38-126)
Urine Glucose
POC Glucose > 600 H* mg/dl 444 H mg/dl
(70-99) (70-99)
06/16/24 06/16/24
16:33 16:45
MCV
VBG pH
VBG pCO2
VBG pO2
Sodium
Chloride
Glucose
Alkaline Phosphatase
Urine Glucose 3+ A
(Negative)
POC Glucose 243 H mg/dl
(70-99)
06/16/24 14:57
06/16/24 14:57
Vital Signs
Initial and Last Documented VS:
Initial Vital Signs
Temp Pulse Resp BP Pulse Ox
98.5 F 61 18 149/85 99
06/16/24 13:19 06/16/24 13:19 06/16/24 13:19 06/16/24 13:19 06/16/24 13:19
Last Documented Vital Signs
Temp Pulse Resp BP Pulse Ox
98.5 F 61 18 112/76 96
06/16/24 13:19 06/16/24 13:19 06/16/24 13:19 06/16/24 15:04 06/16/24 15:45
MDM/Problems Addressed
MDM/Problems Addressed:
Blood work reviewed, significant for hyperglycemia, without anion gap. Patient given IV fluids along with insulin, with improved blood sugar. Otherwise, patient remains afebrile, hemodynamically stable, and nontoxic-appearing. As patient is
currently in search of primary care physician, referral made to family medicine medical clinic for an outpatient evaluation.
*Critical Care Note
Total Time (30-74mins, 75-104mins- exclusive of procedures): Not Applicable
ED Attending Note
-
Portions of this chart may have been created with voice recognition software.� Occasional wrong word or��sound alike� substitutions may have occurred due to the inherent limitations of voice recognition software.
Discharge Plan
Departure
Patient Disposition: Home (Routine Discharge)
Date of Disposition: 06/16/24
Time of Disposition: 16:45
Patient with high blood pressure during this ER visit?: Yes
Discharge Problem:
Hyperglycemia, Prescription refill
Instructions: Type 1 diabetes - Discharge instructions, High blood sugar in adults - ED discharge instructions
Prescriptions:
New
atorvastatin 40 mg tablet
40 mg PO DAILY Qty: 30 0RF
metoprolol succinate [Toprol XL] 25 mg tablet extended release 24 hr
25 mg PO DAILY Qty: 30 0RF
furosemide [Lasix] 20 mg tablet
20 mg PO DAILY Qty: 30 0RF
Humulin 70/30 U-100 KwikPen 100 unit/mL (70-30) insulin pen
20 unit SC BID Qty: 30 0RF
dapagliflozin propanediol 10 mg tablet
10 mg PO DAILY Qty: 30 0RF
No Action
dapagliflozin propanediol 10 mg Tablet
10 mg PO DAILY 30 Days Qty: 30 2RF
furosemide 40 mg tablet
20 mg PO DAILY 30 Days Qty: 30 2RF
metoprolol succinate 25 mg Tablet Extended Release 24 Hr
25 mg PO DAILY 30 Days Qty: 30 0RF
atorvastatin 40 mg tablet
40 mg PO HS Qty: 30 0RF
Humulin 70/30 Insulin Pen 100 unit/mL (70-30) Insulin Pen
20 unit SC BID
Referrals:
[facility] [Outside]
UNKNOWN - PT DOES,NOT KNOW [Family Provider] -
Activity Restrictions/Additional Instructions:
As discussed, please follow-up with referred [facility] clinic for further evaluation and treatment. Your prescriptions have been sent electronically to [facility].
Interventions
Interventions:
*Risk Screen - Suicide Last Done: 06/16/24 13:19
*General Assessment Last Done: 06/16/24 13:19
*Neglect/Abuse Screening Last Done: 06/16/24 13:19
ED- Fall Risk Assessment Last Done: 06/16/24 15:00
*ED COVID-19 Vaccine History Last Done: 06/16/24 13:19
*Nursing Disposition Last Done: 06/16/24 18:05
Discharge Date and Time
Discharge Date/Time: 06/16/24 16:00
Print Language: TURKMEN
[2024-06-16 14:51] LABS: Glucose - Point of Care 444 mg/dl (70-99)
[2024-06-16 15:04] VITALS: BP 112/76
[2024-06-16 15:08] LABS: Venous Blood Gas B.E. 2.9 mmol/L (-4 to +4); Venous Blood Gas HCO3 25.9 mmol/L (22-27); Venous Blood Gas O2 Sat % 99.3 %; Venous Blood Gas pCO2 34 mmHg (35-48); Venous Blood Gas pH 7.49 (7.32-7.43); Venous Blood Gas pO2 127 mmHg (30-50)
[2024-06-16 15:10] LABS: % Basophils 0.7 % (0-2); % Eosinophils 1.3 % (0-6); % Immature Granulocytes 0.4 % (0-0.5); % Lymphocytes 27.8 % (20.5-51.1); % Monocytes 7.7 % (1.7-9.3); % Neutrophils 62.1 % (42.2-75.2); Absolute Basophils 0.1 10^3/uL (0-0.2); Absolute Eosinophils 0.1 10^3/uL (0-0.7); Absolute Lymphocytes 2.3 10^3/uL (1.2-3.4); Absolute Monocytes 0.6 10^3/uL (0.1-0.6); Absolute Neutrophils 5.1 10^3/uL (1.4-6.5); Hematocrit 40.4 % (39.0-52.0); Hemoglobin 14.5 g/dL (13.0-18.0); Mean Corp Hgb Conc. 35.9 g/dL (33.0-37.0); Nucleated Red Blood Cells % 0 % (-); Platelet Count 190 10^3/uL (130-400); Red Blood Cell Count 5.18 10^6/uL (4.70-6.10); Red Cell Dist. Width 12.8 % (11.5-14.5); White Blood Cell Count 8.3 10^3/uL (4.8-10.8)
[2024-06-16 15:30] LABS: NT-proBNP 1130 pg/ml
[2024-06-16 15:31] LABS: ALT (SGPT) 37 U/L (0-50); AST (SGOT) 41 U/L (17-59); Albumin 4.2 g/dl (3.5-5.0); Alcohol None Detected; Alkaline Phosphatase 205 U/L (38-126); Blood Urea Nitrogen 15 mg/dl (9-20); Calcium 9.1 mg/dl (8.4-10.2); Carbon Dioxide 27 mmol/L (22-30); Chloride 92 mmol/L (98-107); Glucose 456 mg/dl (70-99); Magnesium 1.7 mg/dl (1.6-2.3); Potassium 4.2 mmol/L (3.5-5.1); Sodium 128 mmol/L (135-145); Total Bilirubin 0.9 mg/dl (0.2-1.3); Total Protein 7.1 g/dl (6.3-8.2); eGFR > 60.00
[2024-06-16 15:34] LABS: B-Hydroxybutyrate 0.12 mmol/L (0.02-0.27)
[2024-06-16] MEDS: NOVOLIN R 10 UNITS IV (16:22)
[2024-06-16] MEDS: NSS 1000 IV (16:23)
[2024-06-16 16:46] LABS: Urine Albumin Negative (Neg - Trace); Urine Bilirubin Negative (Negative); Urine Color Yellow; Urine Glucose 3+ (Negative); Urine Ketone Negative (Negative); Urine Leukocyte Negative (Negative); Urine Nitrite Negative (Negative); Urine Occult Blood Negative (Negative); Urine Urobilinogen Negative (Neg - 1+); Urine pH 6.5 (5.0-9.0)
[2024-06-16 16:47] LABS: Glucose - Point of Care 243 mg/dl (70-99)
[2024-06-16 16:50] LABS: Urine Character Clear (Clear)
== END 2024-06-16 16:00 | disposition home or self-care (01) ==
LOC: EMR 13:17
PROVIDERS: EMERGENCY PHYSICIAN Emergency Medicine
DX: E11.65 Type 2 diabetes mellitus with hyperglycemia (principal); Z76.0 Encounter for issue of repeat prescription; E78.00 Pure hypercholesterolemia, unspecified; I10 Essential (primary) hypertension; J45.909 Unspecified asthma, uncomplicated; F17.200 Nicotine dependence, unspecified, uncomplicated; Z79.4 Long term (current) use of insulin
CPT/HCPCS: 96361; 99284; 96374; 80053; 81003; 82010; 82077; 82805; 82962; 83735; 83880; 85025

== ENCOUNTER 2024-08-12 10:21 | Emergency (ER) | payer MEDICARE, OTHER, SELFPAY ==
[2024-08-12 10:29] VITALS: BP 130/75
--- NOTE | 2024-08-12 10:58 | ED.GENMED ---
History of Present Illness
General
Chief Complaint: Prescription Refill
Source: patient
Exam Limitations: none
Time Seen by Provider: 08/12/24 10:55
Nursing documentation reviewed up to this point in time: agreed with
History of Present Illness
History of Present Illness:
Patient is a 69-year-old male with past medical history of heart failure, type 2 diabetes, chronic transaminases secondary to chronic hepatitis B, hypertension hyperlipidemia presents to the ER for prescription refills. Patient has been here
multiple times for this. He tells me he has a family doctor but canceled and is not able to tell me the name or place of the family doctor. He has no physical complaints. He does report that he has been using his diabetic injection pen.
Past History
Past History
ED Past Medical History: Asthma, HTN, Hypercholesterolemia, IDDM and Other (Kidney stones, Chronic back pain)
ED Past Surgical History: Other (Back surgery with microdiscectomy, kidney stone surgery x3, in removal of a right lymph node)
Social History
Tobacco: Smoker
Alcohol: None
Drug: None
Personal: Single
Living: alone
Employment: Disabled
Family History
Family History: Other (Noncontributory)
Review of Systems
Review of Systems
Allergies reviewed?: Yes
All Other Systems: ROS reviewed and negative except as documented in HPI and ROS
Constitutional: Reports no symptoms; Denies fever, fatigue or chills
Respiratory: Reports no symptoms; Denies trouble breathing
Cardiac: Reports no symptoms
ABD/GI: Reports no symptoms; Denies abdominal pain or nausea
Musculoskeletal: Reports no symptoms
Skin: Reports no symptoms
Neurological: Reports no symptoms
Psychiatric: Reports no symptoms
Phy Exam
General Physical Exam
General Presentation: no apparent distress
General Skin: warm and dry
General Habitus: normal
General Mental: alert
General Hydration: appears well hydrated
Neurological Exam
Neurological Exam: alert and oriented x3
Musculoskeletal Exam
Musculoskeletal Exam: full ROM
Skin Exam
Skin Exam: normal color and warm/dry
Psychiatric Exam
Psychiatric Exam: normal mood/affect
Course
Vital Signs
Initial and Last Documented VS:
Initial Vital Signs
Temp Pulse Resp BP Pulse Ox
97.6 F 94 18 130/75 98
08/12/24 10:08/12/24 10:08/12/24 10:08/12/24 10:08/12/24 10:29
Last Documented Vital Signs
Temp Pulse Resp BP Pulse Ox
97.6 F 94 18 130/75 98
08/12/24 10:08/12/24 10:08/12/24 10:08/12/24 10:08/12/24 10:29
Supervisor [employer] consulted with Physician
Supervisor [employer] consulted with physician?: Yes
Name of Physician Consulted: Anatoliy
MDM/Problems Addressed
Differential Diagnosis Includes:
Not limited to encounter for medications
MDM/Problems Addressed:
Patient is a 69-year-old male who presented for prescription refill. He has been seen multiple times for this and has not followed up with a family doctor. He reports he had 1 canceled but is not able to tell me the name /location of the
physician. Because patient has been here multiple times I have reached out to case management to try to get patient more assistance and help with his prescriptions and family physician. Case management has been trying to talk to the county to get
him a community social sciences department chair to manage him on a long-term basis.
Patient had no physical complaints and simply wanted his medications however I was informed the patient left prior to seeing case management and walked out of the ED
*Critical Care Note
Total Time (30-74mins, 75-104mins- exclusive of procedures): Not Applicable
ED Attending Note
-
Portions of this chart may have been created with voice recognition software.� Occasional wrong word or��sound alike� substitutions may have occurred due to the inherent limitations of voice recognition software.
Discharge Plan
Departure
Patient Disposition: Elopement
Date of Disposition: 08/12/24
Time of Disposition: 12:49
Patient with high blood pressure during this ER visit?: Yes
Condition: Fair
Covid-19: Not Applicable
Discharge Problem:
request for prescription refill
Prescriptions:
No Action
dapagliflozin propanediol 10 mg Tablet
10 mg PO DAILY 30 Days Qty: 30 2RF
furosemide 40 mg tablet
20 mg PO DAILY 30 Days Qty: 30 2RF
metoprolol succinate 25 mg Tablet Extended Release 24 Hr
25 mg PO DAILY 30 Days Qty: 30 0RF
atorvastatin 40 mg tablet
40 mg PO HS Qty: 30 0RF
Humulin 70/30 Insulin Pen 100 unit/mL (70-30) Insulin Pen
20 unit SC BID
atorvastatin 40 mg tablet
40 mg PO DAILY Qty: 30 0RF
metoprolol succinate [Toprol XL] 25 mg tablet extended release 24 hr
25 mg PO DAILY Qty: 30 0RF
furosemide [Lasix] 20 mg tablet
20 mg PO DAILY Qty: 30 0RF
Humulin 70/30 U-100 KwikPen 100 unit/mL (70-30) insulin pen
20 unit SC BID Qty: 30 0RF
dapagliflozin propanediol 10 mg tablet
10 mg PO DAILY Qty: 30 0RF
atorvastatin [Lipitor] 40 mg tablet
40 mg PO DAILY Qty: 30 0RF
furosemide [Lasix] 20 mg tablet
20 mg PO DAILY Qty: 30 0RF
metoprolol succinate [Toprol XL] 25 mg tablet extended release 24 hr
25 mg PO DAILY Qty: 30 0RF
dapagliflozin propanediol [Farxiga] 10 mg tablet
10 mg PO DAILY Qty: 30 0RF
Humulin 70/30 U-100 KwikPen 100 unit/mL (70-30) insulin pen
20 unit SC BID Qty: 15 0RF
Referrals:
NONE,* [Family Provider] -
Interventions
Interventions:
*Risk Screen - Suicide Last Done: 08/12/24 10:29
*General Assessment Last Done: 08/12/24 10:29
*Neglect/Abuse Screening Last Done: 08/12/24 10:29
*ED- Fall Risk Assessment Last Done: 08/12/24 13:07
*ED COVID-19 Vaccine History Last Done: 08/12/24 10:29
*Nursing Disposition Last Done: 08/12/24 13:07
Discharge Date and Time
Discharge Date/Time: 08/12/24 13:08
Print Language: MAORI
--- NOTE | 2024-08-12 12:47 | CM ---
ED CM consult as pt without PCP and frequent trips to ED to fill scripts
Chart review and this pt well known to CM department
Pt residing for the past few years at [facility]
Pt has not established primary care and remains without PCP
Pt has been referred many times to the [facility], [facility], resident clinic and [facility] programs by CM department with no follow through
A few years prior, pt was noted to be established with [facility]
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
Call with [address] [phone] to request service or work dispatcher assistance for establishing outpt care in the community
Pt is not eligible for coordinator services
Per [facility] rep, that service will need to added to his plan through the [facility], will need case management
Call to [facility] [phone] to request pt be established with a case packer and sealer to assist with coordination and follow through of service
Lengthy wait time
Pt left ED without meeting CM while CM still on hold with the [facility]
== END 2024-08-12 13:08 | disposition left against medical advice (07) ==
LOC: EMR 10:21
PROVIDERS: EMERGENCY PHYSICIAN Student in an Organized Health Care Education/Training Program
DX: Z76.0 Encounter for issue of repeat prescription (principal); I11.0 Hypertensive heart disease with heart failure; I50.9 Heart failure, unspecified; J45.909 Unspecified asthma, uncomplicated; E11.9 Type 2 diabetes mellitus without complications; E78.00 Pure hypercholesterolemia, unspecified; B18.1 Chronic viral hepatitis B without delta-agent; F17.200 Nicotine dependence, unspecified, uncomplicated; Z79.4 Long term (current) use of insulin
CPT/HCPCS: 99281

== ENCOUNTER 2024-08-13 07:24 | Emergency (ER) | payer MEDICARE, OTHER, SELFPAY ==
[2024-08-13 07:25] VITALS: BP 142/90
[2024-08-13 07:32] LABS: Glucose - Point of Care 136 mg/dl (70-99)
--- NOTE | 2024-08-13 07:54 | ED.GENMED ---
History of Present Illness
General
Chief Complaint: Dizziness
Source: patient, records and previous hospital records
Exam Limitations: none
Time Seen by Provider: 08/13/24 07:38
Nursing documentation reviewed up to this point in time: agreed with
History of Present Illness
History of Present Illness:
69-year-old male returns requesting refills on his prescriptions seen here yesterday had to leave because he was on a bicycle
Case management was involved as well as the county, patient tells me is having a hard time getting follow-up appointments with his outpatient providers he has no complaints now although he was dizzy yesterday
Past History
Past History
ED Past Medical History: Asthma, HTN, Hypercholesterolemia, IDDM and Other (Kidney stones, Chronic back pain)
ED Past Surgical History: Other (Back surgery with microdiscectomy, kidney stone surgery x3, in removal of a right lymph node)
Social History
Tobacco: Smoker
Alcohol: None
Drug: None
Personal: Single
Living: alone
Employment: Disabled
Family History
Family History: Other (Noncontributory)
Review of Systems
Review of Systems
All Other Systems: ROS reviewed and negative except as documented in HPI and ROS
Phy Exam
Physical Exam
Physical Exam:
Physical Exam
General: Disheveled cooperative male
Neck: No jaundice
Lungs: no acute respiratory distress.
Neuro: alert and oriented. no focal neurological deficits
Skin: no rash
Psychiatric: Disheveled interactive and cooperative
Extremities: no edema.
Sepsis
Sepsis Screening
Sepsis Assessment: Sepsis Ruled Out
Sepsis Screen
Sepsis Screen: Sepsis Ruled Out
Date: 08/13/24
Time: 13:07
Course
Orders/Labs/Results
Orders:
Orders
08/13/24 07:33
EKG [Electrocardiogram (*1)] Urgent
Reason for Study: Vertigo / Dizzy
EKG- Treatment ONCE
08/13/24 07:53
Case Management Consult ONCE
Case Management Consult: Discharge Planning
Abnormal Lab Results
08/13/24
07:30
POC Glucose 136 H mg/dl
(70-99)
Vital Signs
Initial and Last Documented VS:
Initial Vital Signs
Temp Pulse Resp BP Pulse Ox
97.6 F 106 18 142/90 98
08/13/24 07:25 08/13/24 07:25 08/13/24 07:25 08/13/24 07:25 08/13/24 07:25
Last Documented Vital Signs
Temp Pulse Resp BP Pulse Ox
97.6 F 106 18 142/90 98
08/13/24 07:25 08/13/24 07:25 08/13/24 07:25 08/13/24 07:25 08/13/24 07:25
MDM/Problems Addressed
Differential Diagnosis Includes:
med noncompliance disability social stressors
MDM/Problems Addressed:
Needs medications refilled
Chronic conditions affecting care: DM
Acute Exacerbation and/or Progression of Chronic Illness: DM
*Pulse Oximetry
Patient hypoxic: no
*Critical Care Note
Total Time (30-74mins, 75-104mins- exclusive of procedures): Not Applicable
Update Note
Update Note:
Update patient without any complaints, will try to get his meds refilled reviewed with his practitioner from yesterday
ED Attending Note
-
Portions of this chart may have been created with voice recognition software.� Occasional wrong word or��sound alike� substitutions may have occurred due to the inherent limitations of voice recognition software.
Discharge Plan
Departure
Patient Disposition: Elopement
Prescriptions:
New
atorvastatin [Lipitor] 40 mg tablet
40 mg PO DAILY Qty: 30 0RF
furosemide [Lasix] 20 mg tablet
20 mg PO DAILY Qty: 30 0RF
metoprolol succinate [Toprol XL] 25 mg tablet extended release 24 hr
25 mg PO DAILY Qty: 30 0RF
dapagliflozin propanediol [Farxiga] 10 mg tablet
10 mg PO DAILY Qty: 30 0RF
Humulin 70/30 U-100 KwikPen 100 unit/mL (70-30) insulin pen
20 unit SC BID Qty: 15 0RF
No Action
dapagliflozin propanediol 10 mg Tablet
10 mg PO DAILY 30 Days Qty: 30 2RF
furosemide 40 mg tablet
20 mg PO DAILY 30 Days Qty: 30 2RF
metoprolol succinate 25 mg Tablet Extended Release 24 Hr
25 mg PO DAILY 30 Days Qty: 30 0RF
atorvastatin 40 mg tablet
40 mg PO HS Qty: 30 0RF
Humulin 70/30 Insulin Pen 100 unit/mL (70-30) Insulin Pen
20 unit SC BID
atorvastatin 40 mg tablet
40 mg PO DAILY Qty: 30 0RF
metoprolol succinate [Toprol XL] 25 mg tablet extended release 24 hr
25 mg PO DAILY Qty: 30 0RF
furosemide [Lasix] 20 mg tablet
20 mg PO DAILY Qty: 30 0RF
Humulin 70/30 U-100 KwikPen 100 unit/mL (70-30) insulin pen
20 unit SC BID Qty: 30 0RF
dapagliflozin propanediol 10 mg tablet
10 mg PO DAILY Qty: 30 0RF
Referrals:
NONE,* [Family Provider] -
Interventions
Interventions:
*Risk Screen - Suicide Last Done: 08/13/24 07:25
*General Assessment Last Done: 08/13/24 07:42
*Neglect/Abuse Screening Last Done: 08/13/24 07:25
*ED- Fall Risk Assessment Last Done: 08/13/24 07:40
*ED COVID-19 Vaccine History Last Done: 08/13/24 07:25
*Nursing Disposition Last Done: 08/13/24 09:50
ED- Neurological Assessment Last Done: 08/13/24 07:43
ED- Cardiac Assessment Last Done: 08/13/24 09:50
ED Swallowing Screen Last Done: 08/13/24 08:16
Discharge Date and Time
Discharge Date/Time: 08/13/24 09:51
Print Language: IRISH
--- NOTE | 2024-08-13 11:00 | CM ---
ED CM consulted for dc planning
Pt in ED day prior and left prior to working with CM
Came back to ED to have medications refilled
Bedside meeting with pt- pt has lived and worked at [facility] for the past few years
He does not have a PCP
Per chart reviewed, CM very involved with pt over past few years and deoartment has provided resources and to establish care in the community
Pt does not follow through historically
CM recommended pt work with CM to establish a new PCP, set up transport services and work with [facility] to establish CM services in the community
Pt in initial agreement but noted he will only go to PCP at [facility], would not consider other clinics or resident clinics
Does not want to utilize [facility] or [facility] buses, only wants to use his bike
New PCP appt scheduled for September 30, 2024 4:30pm
[facility]- CON[facility]
[address] [facility] [address] [place]
[phone]
Call with [facility] [phone]
Requested case management services
Was told he already has an assigned coordinator
Message sent requesting assistance with setting up and follow up through with outpt care to coordinator
Ticket# [id number]
If call back from coordinator is not received by 08/16, CM to call back [facility] and request escalation to preload supervisor for non-response [phone]
Pt walked out of ED prior to CM providing appt time and update
Attempted call to cell- no answer or VM box to leave message on
Letter sent to pt's address with PCP appointment info
== END 2024-08-13 09:51 | disposition left against medical advice (07) ==
LOC: EMR 07:24
PROVIDERS: EMERGENCY PHYSICIAN Emergency Medicine
DX: R42 Dizziness and giddiness (principal); E11.9 Type 2 diabetes mellitus without complications; F17.200 Nicotine dependence, unspecified, uncomplicated
CPT/HCPCS: 99283; 82962; 93005